=== PATIENT | female | born 1965 | race Caucasian/White ===

== ENCOUNTER → 2019-05-07 10:04 | Outpatient (CLI) | payer MEDICAID, SELFPAY ==
--- NOTE | 2019-05-07 10:06 | NM_ITS ---
CARDIOLITE SPECT MYOCARDIAL PERFUSION LEXISCAN, REST AND STRESS: [facility] REVIEW QGS EF AND WALL MOTION EVALUATION: QPS - PERFUSION EVALUATION HISTORY: palpitations DOSE: 10.20 mCi technetium 99m mibi intravenously at rest followed by 30.4 mCi technetium 99m mibi following the intravenous ministration of 0.4 mg of Lexiscan. Resting blood pressure is 133/66. Stress blood pressure 119/64. FINDINGS: Ejection fraction is calculated to be 67%. Stress images reveal decreased myocardial activity in the anterior wall while rest images reveal improved activity. IMPRESSION: Reversible anterior wall ischemia with normal ejection fraction normal wall motion
--- NOTE | 2019-05-07 10:06 | CA_ITS ---
CA echo doppler complete PROCEDURE: INDICATIONS FOR THE TEST: Chest pain COPD Heart Murmur Tobacco Smoking Palpitations Fatigue Syncope Edema HypertensionXDiabetes Mellitus Rheumatic Fever SOB [place] ObesityXHyperlipidemiaX Family History HDX Additional History CAD,PRE-OP EVAL PATIENT INFORMATION HEIGHT: 69 WEIGHT:222 GENDER: Female B/P:120/80 2-D/M-MODE INTERPRETATION: 2-D MEASUREMENTS OBSERVED VALUES IN CMS Right Ventricular Dimension (RVDd) 1.9 Interventricular Septum (Thickness)(IVsd) .8 Left Ventricular Internal Dimensions(LVIDd) 5.2 Left Ventricular Posterior Wall (Thickness)(LVPWd) 1.0 Aortic Root 3.0 Aortic Cusp Separation 1.8 Left Atrial Dimensions (LAD) 3.2 2D 1. Left atrium is qualitatively mildly enlarged, left ventricle is normal size, mild hypertrophy, visually estimated ejection fraction 55% with no regional wall motion abnormality. 2. The right atrium and ventricle are normal size and contractility. 3. The aortic valve is minimally thickened and fibrosed. 4. The mitral and tricuspid valvular grossly normal. 5. The pulmonic valve is poorly visualized. 6. No significant pericardial effusion noted. DOPPLER INTERROGATION: Doppler interrogation of the aortic, mitral and tricuspid valvular presence of mild mitral and tricuspid regurgitation, tricuspid regurgitation jet velocity is inadequate for calculation of the right ventricular systolic pressure, Doppler evidence of impaired relaxation seen. There is no tissue Doppler performed CONCLUSION: 1. Mildly enlarged left atrium, normal left ventricular size, mild concentric left ventricular hypertrophy, visually estimated ejection fraction 55% with no regional wall motion abnormality Doppler evidence of impaired relaxation seen. 2. Mild mitral and tricuspid regurgitation 3. No significant pericardial effusion noted.
--- NOTE | 2019-05-07 12:29 | HMH.ITSHM ---
Current Home Medications as stated by this patient Mary Aldana or nutrition representative. [] simvastatin tamoxifen lisinopril bisoprolol
== END ==
PROVIDERS: PCP Family Medicine; Visit Provider Internal Medicine
DX: R00.2 Palpitations (principal); R06.02 Shortness of breath; I10 Essential (primary) hypertension; Z01.818 Encounter for other preprocedural examination
CPT/HCPCS: 78452; 93017; 93306; A9502; J2785

== ENCOUNTER → 2021-06-02 09:09 | Outpatient (CLI) | payer MEDICAID, SELFPAY ==
[2021-06-02 09:51] LABS: Basophils # 0.1 K/mm3 (0-0.2); Basophils % 0.6 % (0.1-2.0); Eosinophils # 0.6 K/mm3 (0.0-0.4); Eosinophils % 4.5 % (0.1-12.0); Hematocrit 30.7 % (37.0-47.0); Hemoglobin 9.6 g/dL (12.2-16.2); Lymphocytes % 34.8 % (10-50); Mean Corpuscular HGB Conc 31.2 g/dL (31.8-35.4); Mean Corpuscular Hemoglobin 28.3 pg (27.0-31.2); Mean Corpuscular Volume 90.8 fl (81-99); Mean Platelet Volume 7.4 fl (7.4-10.4); Monocytes # 0.7 K/mm3 (0.1-1.0); Monocytes % 4.8 % (1.7-9.3); Neutrophils # 7.8 K/mm3 (1.8-7.8); Neutrophils % 55.2 % (37.0-80.0); Platelet Count 247 K/mm3 (142-424); Red Blood Count 3.38 M/mm3 (4.20-5.40); Red Cell Distribution Width 14.6 % (11.5-17.5); White Blood Count 14.2 K/mm3 (4.8-10.8)
[2021-06-02 10:24] LABS: Chloride 109 mmol/L (98-107); Sodium 140 mmol/L (136-145)
[2021-06-02 10:25] LABS: Potassium 4.3 mmoL/L (3.5-5.1)
[2021-06-02 10:27] LABS: Alanine Aminotransferase 22 U/L (12-78); Albumin/Globulin Ratio 1.2 (1.1-1.8); Alkaline Phosphatase 102 U/L (38-126); Anion Gap 13.3 mEq/L (5-15); Aspartate Amino Transferase 55 U/L (14-36); Blood Urea Nitrogen 9 mg/dl (7-17); Carbon Dioxide 22 mmol/L (22.0-30.0); Estimated Glomerular Filt Rate 87 ml/min (>60); GFR (African American) 105 ML/MIN (>60); Globulin 3.3 g/dL (1.3-3.2); Total Protein,Serum 7.3 g/dl (6.3-8.2)
[2021-06-02 10:28] LABS: Calcium 9.5 mg/dl (8.4-10.2); Glucose 90 mg/dl (74-100)
[2021-06-02 11:05] LABS: Ferritin 40.7 ng/ml (11.1-264)
[2021-06-03 09:10] LABS: Ceruloplasmin 30.1 mg/dL (19.0-39.0); Hep A Ab, IgM Negative (Negative); Hepatitis B Core Antibody IgM Negative (Negative); Hepatitis B Surface Antigen Negative (Negative); Hepatitis C Antibody <0.1 s/co ratio (0.0-0.9); Immunoglobulin A, Qn 393 mg/dL (87-352); Immunoglobulin G, Qn 1135 mg/dL (586-1602); Immunoglobulin M, Qn 224 mg/dL (26-217)
[2021-06-03 13:28] LABS: Angiotensin Converting Enzyme 66 U/L (14-82)
[2021-06-03 19:10] LABS: Actin (Smooth Muscle) Antibody 20 Units (0-19); Antinuclear Antibodies, IFA Positive (.); Deamidated Gliadin Abs, IgA 13 units (0-19); Deamidated Gliadin Abs, IgG 2 units (0-19); Endomysial IgA Antibody Negative (Negative); Mitochondrial (M2) Antibody 33.5 Units (0.0-20.0); Tissue Transglutaminase IgA Ab 3 U/mL (0-3); Tissue Transglutaminase IgG Ab 6 U/mL (0-5)
[2021-06-04 02:25] LABS: ALT (SGPT) P5P 22 IU/L (0-40); AST (SGOT) P5P 47 IU/L (0-40); Alpha 2-Macroglobulins, Qn 346 mg/dL (110-276); Apolipoprotein A-1 176 mg/dL (116-209); Bilirubin, Total 0.7 mg/dL (0.0-1.2); Cholesterol, Total 238 mg/dL (100-199); Fibrosis Score 0.63 (0.00-0.21); GGT 44 IU/L (0-60); Glucose 86 mg/dL (65-99); Haptoglobin 33 mg/dL (33-346); NASH Score 0.25 (0.25); Steatosis Score 0.31 (0.00-0.30); Triglycerides 126 mg/dL (0-149)
[2021-06-04 06:42] LABS: Reticulin IgA Antibody Negative titer (Neg:<1:2.5)
[2021-06-08 18:32] LABS: Alpha-1-Antitrypsin 222 mg/dL (101-187)
[2021-06-12 08:58] LABS: Alpha-1-Antitrypsin 221
== END ==
PROVIDERS: Visit Provider Nurse Practitioner Family
DX: R94.5 Abnormal results of liver function studies (principal); K74.60 Unspecified cirrhosis of liver; K70.0 Alcoholic fatty liver; F10.11 Alcohol abuse, in remission
CPT/HCPCS: 36415; 80053; 80074; 81256; 82103; 82104; 82164; 82390; 82728; 82784; 83516; 85025; 86038; 86255; 86256; 86376

== ENCOUNTER → 2021-06-05 10:55 | Outpatient (CLI) | payer MEDICAID, SELFPAY ==
[2021-06-05 11:57] LABS: INR 1.23 (0.9-1.1); Prothrombin Time 12.6 seconds (9.2-12.1)
== END ==
PROVIDERS: Visit Provider Nurse Practitioner Family
DX: R79.1 Abnormal coagulation profile (principal)
CPT/HCPCS: 85610

== ENCOUNTER → 2021-09-15 10:05 | Outpatient (CLI) | payer MEDICAID, SELFPAY | PROVIDERS: PCP Family Medicine; Visit Provider Nurse Practitioner Family | DX: R00.2 Palpitations (principal); R01.1 Cardiac murmur, unspecified; I10 Essential (primary) hypertension; E78.2 Mixed hyperlipidemia; I51.89 Other ill-defined heart diseases; Z72.0 Tobacco use | CPT/HCPCS: 93270 ==

== ENCOUNTER → 2021-12-01 08:18 | Outpatient (CLI) | payer MEDICAID, SELFPAY ==
[2021-12-01 08:57] LABS: Basophils # 0.2 K/mm3 (0-0.2); Basophils % 1.4 % (0.1-2.0); Eosinophils # 0.5 K/mm3 (0.0-0.4); Eosinophils % 4.4 % (0.1-12.0); Hemoglobin 13.3 g/dL (12.2-16.2); Lymphocytes # 4.4 K/mm3 (0.7-4.5); Mean Corpuscular HGB Conc 31.6 g/dL (31.8-35.4); Mean Corpuscular Hemoglobin 29.8 pg (27.0-31.2); Mean Corpuscular Volume 94.2 fl (81-99); Mean Platelet Volume 8.5 fl (7.4-10.4); Monocytes # 0.6 K/mm3 (0.1-1.0); Monocytes % 4.6 % (1.7-9.3); Neutrophils # 6.5 K/mm3 (1.8-7.8); Neutrophils % 53.6 % (37.0-80.0); Platelet Count 184 K/mm3 (142-424); Red Blood Count 4.46 M/mm3 (4.20-5.40); Red Cell Distribution Width 16.2 % (11.5-17.5); White Blood Count 12.1 K/mm3 (4.8-10.8)
[2021-12-01 09:04] LABS: INR 1.21 (0.9-1.1); Prothrombin Time 13.5 seconds (10.1-12.5)
[2021-12-01 09:05] LABS: Ammonia 40 umol/L (9-30)
[2021-12-01 10:14] LABS: Chloride 105 mmol/L (98-107)
[2021-12-01 10:15] LABS: Sodium 138 mmol/L (136-145)
[2021-12-01 10:17] LABS: Alanine Aminotransferase 21 U/L (12-78); Albumin Level 3.7 g/dl (3.5-5.0); Alkaline Phosphatase 77 U/L (38-126); Aspartate Amino Transferase 51 U/L (14-36); Bilirubin,Total 0.9 mg/dl (0.2-1.3); Blood Urea Nitrogen 9 mg/dl (7-17); Carbon Dioxide 26 mmol/L (22.0-30.0); Estimated Glomerular Filt Rate 87 ml/min (>60); GFR (African American) 105 ML/MIN (>60); Iron 61 ug/dL (37-170)
[2021-12-01 10:18] LABS: Calcium 9.7 mg/dl (8.4-10.2); Glucose 96 mg/dl (74-100); Total Protein,Serum 6.7 g/dl (6.3-8.2)
[2021-12-01 10:27] LABS: Total Iron Binding Capacity 325 ug/dL (265-497)
[2021-12-01 10:53] LABS: Ferritin 55.3 ng/ml (11.1-264)
[2021-12-01 15:03] LABS: Albumin/Globulin Ratio 1.2 (1.1-1.8)
[2021-12-02 08:37] LABS: AFP, Tumor Marker 16.2 ng/mL (0.0-8.3)
== END ==
PROVIDERS: Visit Provider Nurse Practitioner Family
DX: R94.5 Abnormal results of liver function studies (principal); K70.0 Alcoholic fatty liver
CPT/HCPCS: 36415; 80053; 82105; 82140; 82728; 83540; 83550; 85025; 85610

== ENCOUNTER → 2023-03-08 13:51 | Outpatient (CLI) | payer MEDICAID, SELFPAY | PROVIDERS: PCP Family Medicine; Visit Provider Nurse Practitioner | DX: R06.00 Dyspnea, unspecified (principal); I51.89 Other ill-defined heart diseases; Z09 Encounter for follow-up examination after completed treatment for conditions other than malignant neoplasm | CPT/HCPCS: 93306 ==

== ENCOUNTER 2025-02-12 11:53 | Outpatient (CLI) | payer MEDICAID, SELFPAY ==
[2025-02-12 12:51] LABS: Basophils # 0.1 K/mm3 (0-0.2); Basophils % 0.7 % (0.1-2.0); Eosinophils # 0.1 K/mm3 (0.0-0.4); Eosinophils % 0.7 % (0.1-12.0); Hematocrit 46.3 % (37.0-47.0); Hemoglobin 15.7 g/dL (12.2-16.2); Lymphocytes # 1.7 K/mm3 (0.7-4.5); Lymphocytes % 15.3 % (10-50); Mean Corpuscular HGB Conc 33.9 g/dL (31.8-35.4); Mean Corpuscular Hemoglobin 29.9 pg (27.0-31.2); Mean Corpuscular Volume 88.2 fl (81-99); Monocytes # 0.8 K/mm3 (0.1-1.0); Monocytes % 7.5 % (1.7-9.3); Neutrophils # 8.2 K/mm3 (1.8-7.8); Neutrophils % 75.2 % (37.0-80.0); Platelet Count 203 K/mm3 (142-424); Red Blood Count 5.25 M/mm3 (4.20-5.40); Red Cell Distribution Width 14.8 % (11.5-17.5)
[2025-02-12 13:19] LABS: Albumin Level 4.1 g/dl (3.5-5.0); Chloride 101 mmol/L (98-107); Potassium 4.1 mmoL/L (3.5-5.1); Sodium 135 mmol/L (136-145)
[2025-02-12 13:21] LABS: Blood Urea Nitrogen 13 mg/dl (7-17); Estimated Glomerular Filt Rate 86 ml/min (>60); GFR (African American) 104 ML/MIN (>60)
[2025-02-12 13:22] LABS: Alanine Aminotransferase 40 U/L (12-78); Alkaline Phosphatase 118 U/L (38-126); Anion Gap 8.1 mEq/L (5-15); Aspartate Amino Transferase 53 U/L (14-36); Bilirubin,Direct 0.1 mg/dl (0.0-0.4); Bilirubin,Total 2.1 mg/dl (0.2-1.3); Calcium 10.1 mg/dl (8.4-10.2); Carbon Dioxide 30 mmol/L (22.0-30.0); Cholesterol 259 mg/dl (140-200); Glucose 90 mg/dl (74-100); Magnesium 1.9 mg/dl (1.6-2.3); Total Protein,Serum 6.8 g/dl (6.3-8.2); Triglycerides 58 mg/dl (30-150); VLDL Cholesterol 12 mg/dL (0-40)
[2025-02-12 13:23] LABS: Chol/HDL Ratio 2.6 (1-3.5); HDL Cholesterol 99 mg/dl (40-60)
[2025-02-12 13:34] LABS: Direct LDL Cholesterol 134.19 mg/dL (100-129)
[2025-02-12 13:53] LABS: Thyroid Stimulating Hormone 1.93 uIU/mL (0.465-4.68)
[2025-02-12 17:35] LABS: Free T4 (Free Thyroxine) 1.76 ng/dl (0.78-2.19)
== END 2025-02-12 23:59 | disposition home or self-care (01) ==
PROVIDERS: PCP Nurse Practitioner Family; Visit Provider Nurse Practitioner Family
DX: I34.0 Nonrheumatic mitral (valve) insufficiency (principal); R60.9 Edema, unspecified; M35.00 Sjogren syndrome, unspecified; E78.2 Mixed hyperlipidemia; I10 Essential (primary) hypertension; Z72.0 Tobacco use
CPT/HCPCS: 36415; 80048; 80061; 80076; 83735; 84439; 84443; 85025

== ENCOUNTER 2025-03-18 10:53 | Outpatient (CLI) | payer MEDICAID, SELFPAY ==
--- OUTSIDE RECORDS SUMMARY | 2025-03-18 10:55 | XMS_ITS | Continuity of Care Document ---
Author Organization MONISHA - SORIN Thom & JUNE Rivas [facility] Address [address] [place] [address] Care Team Providers Care Orange Peel Operator Name Role Phone NINA MCCRACKEN Primary Care Provider Assessment No assessment recorded. Plan of Treatment Reminders Order Date Submit Date Provider Last Modified By Organization Details Last Modified Time Details Appointments None recorded. Lab None recorded. Referral None recorded. Procedures None recorded. Surgeries None recorded. Imaging XR, hand 2024 025 [email or web address] [facility], [address] [place] [address], [address], 5 14:52:17 Medication Orders Kenalog 10 mg/mL suspension for injection [address] [place] [address] Pharmacy #1, [address] [place], [address], 5 14:52:17 bupivacaine HCl 0.5 % (5 mg/mL) injection solution [address] [facility], [address] [place], [address], 5 14:52:17 Patient TargetsNo targets recorded. Patient InstructionsNo instructions recorded. Reason for Referral None Reported. Results Created Date Observation Date Name Description Value Unit Range Abnormal Flag Note LastModifiedBy Organization Detail LastModifiedTime 01/31/2001/29/2025 rell birdie n unila t lt 2D [facility] al [address] [place] [address] Phone: Fax: Name: MARY WOLFE Exam Date: 01/30/20 : [birth year] Age 60 years Gender : F Access ion: [id number] Physic macho: ELIDA MESSINA Facilhernandez ty: [facility] HSV: Outpat ient Exam: RELL SCREEN UNILAT LT 2D & 3D EXAMIN ATION: RELL SCREEN UNILAT LT 2D & 3D HISTOR Y: Screen ing mammog masoud. Histor y of right breast cancer status post mastec fredrick 2013. Histor y of benign left breast excisi on. No curren t compla ints. COMPAR JOSE ANTONIO: 023, 022, 07/01/20 20 and 019 TECHNI QUE: Unilat eral left breast screen ing mammog masoud. CC and MLO views of the left breast were obtain ed with combin ation 2-D mammog masoud (DM)/d igital breast tomosy nthesi s (DBT) and interp reted with CAD. FINDIN GS: Breast Densit y: C - The breast tissue is hetero geneou sly dense, which may obscur e small masses . Patien t is status post right mastec fredrick and left excisi on. The appear ance is stable since the previo us mammog masoud. There are no suspic ious masses , calcif icatio ns or region s of distor tion on today' s imagin g. IMPRES ALYSON: No mammog raphic eviden ce of malign amanda status post right mastec fredrick. BI-RAD S CATEGO RY: CATEGO RY 2, BENIGN FINDIN GS RECOMM ENDATI ON: ANNUAL SCREEN ING IN 12 MONTHS Electr onical ly signed by: Abdon Robertson MD 2024 02:47 PM EST RP Workst ation: SEALWR [id number] FC BIRADS [facility] BREAST DENSIT Y [facility] FOLLOW -UP CODE Dictat ed By: ABDON POSADAS Transc ribed By: Transc ribed On: 01/31/20 2:44 PM Electr onical ly signed by: ABDON POSADAS 01/31/20 Thank you for referr MARY Reynoso to [facility] al. Legall y authsushila caal d by GERALD KAY 2024-01-30 14:44: 52 CC'ed Logic: Orderi ng Provid er: LISA MARRERO CC Provid er: LISA MARRERO [email or web address] [facility] ([facility]) [address], [place], [address], 01/30/2025 15:32:35 02/05/20 25 XR, hand No observ ation record ed. DOMINIC [facility] [address], [address], 02/06/2025 14:06:55 02/07/20 25 XR, hand No observ ation record ed. [email or web address] [address], [address], 02/06/2025 13:16:42 Result Notes None recorded. Problems Name Problem SNOMED Code Status Onset Date Resolution Date Notes Provider Name and Address Organization Details Recorded Time Fever [id number] Active 2023 Neva Nina [facility], [place] - [place] - [place] & [place] 4 08:46:43 Acute bacterial pharyngitis 398828254 Active 2023 Nina Rolon PA-C [address] [facility], [place], [address], [place] [facility] [facility] & Evelyn 4 09:15:13 Dyspnea on exertion 24669107 Active 2024 Nina Rolon PA-C [address], [place], [address], [place] & [place] 5 09:44:44 Right lower zone pneumonia 366920635 Active 2024 Nina Rolon PA-C [address] [facility],[address], [place], [address], [place] 5 10:41:38 Viral syndrome 361088645 Active 2024 Elida Messina NP [facility] [address] [facility], [place], [address], [place] & [place] 5 15:30:42 Pain in right hand 6099666839543 09 Active 2024 Elida Messina NP [facility] [address] [facility], [place], [address], [place] & [place] 5 11:20:47 Benign hypertensio n 23614123 Active 2021 Elida Messina NP [facility] [address] [facility], [place], [address], [place] & [place] 2 10:24:59 Gastroesoph ageal reflux disease without esophagitis 930414808 Active 2021 Elida Messina NP [facility] [address] [facility], [place], [address], [place] & [place] 2 10:25:09 Migraine 48421724 Active 2021 Elida Messina NP [facility] [address] [facility], [place], [address], [place] & [place] 2 10:25:18 History of malignant neoplasm of breast 275256720 Active 2021 Elida Messina NP [facility] [address] [facility], [place], [address], [place] & [place] 2 10:25:38 Mixed hyperlipide vidal 203976167 Active 2021 Elida Messina NP [address] [place] [address],[address], [place], [address], [place] & [place] 2 10:25:54 Allergic rhinitis 98007193 Active 2021 Elida Messina, SENIOR WEB ARCHITECT [address] [place] [address],[address], [place], [address], [place] & [place] 2 10:26:07 Cirrhosis of liver 71837912 Active 2021 Elida Messina, SENIOR WEB ARCHITECT [address] [place] [address],[address], [place], [address], [place] & [place] 2 10:26:18 Generalized anxiety disorder 07492793 Active 2021 Elida Messina, COLE [address] [place] [address],[address], [place], [address], [place] 2 10:26:55 Osteoarthri tis 993032029 Active 2021 Elida Messina, SENIOR WEB ARCHITECT [address] [place] [address],[address], [place], [address], [place] 2 10:27:06 Skin lesion 24209717 Active 2021 Elida Messina, COLE [address] [place] [address],[address], [place], [address], [place] 2 10:40:43 Fatigue 76334110 Active 2021 Elida Messina, COLE [address] [place] [address],[address], [place], [address], [place] 2 10:41:27 Blood glucose outside reference range 231457568 Active 2021 Elida Messina, COLE [address] [place] [address],[address], [place], [address], [place] 2 10:42:01 Muscle pain 07809421 Active 2021 Dank null, [place] 2 11:47:23 Essential hypertensio n 84924161 Active 2021 Dank null[place] 2 11:49:18 Squamous cell carcinoma of skin 987823014 Active 2021 Elida Messina, COLE [facility],[address], [address], [place] 2 14:12:38 Congestion of nasal sinus 03788456 Active 2021 Dank null, [place] 2 16:34:41 SARS-CoV-2 antibody detected 183508031 Active 2021 Elida Messina NP [facility],[address], [address], [place] 2 10:56:19 Vitamin D deficiency 40157981 Active 2021 Elida Messina NP [address] [place] [address],[address], [address], [place] 4 10:28:03 Spasm 53137653 Active 2022 Nina Rolon PA-C [address] [place] [address],[address], [address], [place] 3 10:53:10 Sj??gren's syndrome 38573898 Active 2022 Nina Rolon PA-C [facility],[address], [address], [place] 3 10:54:15 Hypomagnese vidal 303592075 Active 2022 Nina Rolon PA-C [facility] [employer], [place], [address], [place] 3 08:00:02 Dental abscess 369450559 Active 2022 Elida Messina NP [facility] [address] [facility], [place], [address], [place] 3 10:53:45 Candidiasis of vagina 41768190 Active 2022 Elida Messina NP [facility] [address] [facility], [place], [address], [place] 3 14:21:45 Acute pharyngitis 494922097 Active 2022 Nina Rolon PA-C [facility] [address] [facility], [place], [address], [place] 3 13:37:35 Acute otitis media 3116964 Active 2022 Nina Rolon PA-C [facility] [address] [facility], [place], [address], [place] 3 13:54:26 Cough 59177798 Active 2022 Elida Messina NP [facility] [address] [facility], [place], [address], [place] 3 11:17:20 Acute exacerbatio n of chronic obstructive pulmonary disease 064515129 Active 2022 Elida Messina NP [facility] [address] [facility], [place], [address], [place] 3 11:44:39 Iron deficiency anemia 60402497 Active 2022 Elida Messina NP [facility] [address] [facility], [place], [address], [place] 3 10:06:07 Pain of right shoulder joint 6589732365727 9100 Active 2022 Elida Messina NP [address] [facility],[address], [place], [address], [place] 3 09:38:50 Acute upper respiratory infection 90893948 Active 2022 RM CROSS [address] [facility],[address], [place], [address], [place] & [place] 3 16:28:50 Middle ear effusion 1264448620 Active 2023 Elida Messina NP [facility] [address] [facility], [place], [address], [place] 4 09:13:11 Abrasion of skin of left ear 1084239922455 9107 Active 2023 Elida Messina NP [address] [facility],[address], [place], [address], [place] 4 09:42:28 Lesion of liver 312662098 Active 2023 Stephanie Felix null[place] 4 11:40:12 Hepatic failure 46855078 Active 2023 Stephanie Felxi null[place] 4 11:40:54 Pain of left hand 5064700916113 03 Active 2023 Zoe Rizzo null[place] 5 13:17:32 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 Procedures Surgical History Date Name Laterality Status Provider Name and Address Organization Details Recorded Time 11/03/20 23 completed February Weems MONISHA - [place] - [place] & [place] 02/02/2024 13:47:17 10/12/20 23 Date of Last Colonoscopy completed February Weems MONISHA - [place] - [place] & [place] 02/02/2024 13:47:17 09/30/20 23 Date of Last Pap Smear completed February Weems MONISHA - [place] - [place] & [place] 02/02/2024 13:47:17 10/27/20 22 Excision and closure completed Elida Messina NP [address], [place], [address], [place]ISHA - [place] - [place] & [place] 10/27/2022 15:19:23 10/15/20 22 Punch Biopsy completed Elida Messina NP [address], [place], [address], [place] & [place] 10/15/2022 10:44:06 11/28/19 22 Other completed February Dank BEARDEN - [place] - [place] & [place] 12/31/2022 10:29:21 11/28/19 22 Other completed February Weems MONISHA - [place] - [place] & [place] 10/27/2022 14:03:34 11/28/19 19 Knee Replacement completed Zoe Villagran [facility] - [place] & [place] 10/15/2022 10:14:27 07/26/20 17 procedure on shoulder completed Zoe BEARDEN - [place] - [place] & [place] 10/15/2022 10:14:14 11/28/19 17 Cataract Surgery completed Zoe BEARDEN - [place] - [place] & [place] 10/15/2022 10:13:02 11/28/19 17 Joint Replacement completed Zoe BEARDEN - [place] - [place] & [place] 10/15/2022 10:20:31 11/28/19 16 Breast Biopsy completed Zoe BEARDEN - [place] - [place] & [place] 10/15/2022 10:12:50 03/04/20 15 Most Recent Bone Density completed Zoe Villagran LPNT [facility] & [place] 10/15/2022 10:20:10 11/28/19 15 Colonoscopy completed Zoe Villagran LPNT [facility] & [place] 10/15/2022 10:20:31 11/28/19 14 Mastectomy completed Stephanie BEARDEN - LPNT [facility] & [place] 02/17/2024 14:18:25 11/28/19 14 Mastectomy completed Zoe Villagran LPNT [facility] & [place] 10/15/2022 10:11:28 11/28/19 14 Cancer Surgery completed Zoe Villagran LPNT [facility] & [place] 10/15/2022 10:20:31 11/28/18 90 Dilation and Curettage completed Zoe Villagran LPNT [facility] & [place] 10/15/2022 10:12:12 11/28/18 83 Appendectomy completed Zoe ROWELL [facility] & [place] 10/15/2022 10:11:40 Tubal Ligation completed Zoe Villagran LPNT [facility] & [place] 10/15/2022 10:11:50 Imaging Results Imaging Date Name Status LastModified by Organiz ation Details LastModified Time 02/04/2025 XR, hand completed DOMINIC [facility] [address] [place] [address], [address], 02/06/2025 14:06:55 Procedure Notes None recorded. Medical Equipment None Reported. Allergies Allergen ID Allergen Name Allergen Category Reaction Reaction Severity Criticality Documentation Date Start Date Code Code System Note Provider Name and Address Organization Details Recorded Time [id number] mold extract medicatio n Not available Not available Not available 11/03/2023 79278 8 RxNorm Other react ions and sever ities : 'Resp irato ry distr ess - moder ate', and 'Resp irato ry distr ess - moder ate'. Zoe Rizzo tejinder MONISHA - LPNT [facility] & [place] 15:39:57 68362 Product containin g penicilli n (product) medicatio n Not available Not available Not available 10/15/2022 31811 8001 SNOMED MONISHA Leavitt [facility] & [place] 2 10:20:42 61800 Substance with sulfonami de structure and antibacte rial mechanism of action (substanc e) medicatio n swelling moderate Not available 10/15/2022 62130 8003 SNOMED MONISHA Leavitt [facility] & [place] 2 10:10:24 40280 penicilli n G Not available Not available Not available Not available 10/15/2022 7980 RxNorm Other react ions and sever ities : 'Rash - moder ate'. MONISHA Herrera [facility] & [place] 3 15:39:57 11132 house dust allergeni c extract environme nt,medica tion respirato ry distress moderate Not available 10/27/2022 92140 9 RxNorm MONISHA Barton [facility] & [place] 2 14:03:28 68288 grass pollen environme nt,medica tion respirato ry distress moderate Not available 10/27/2022 68228 UNK MONISHA Barton [facility] & [place] 2 14:03:28 56049 mold extract environme nt respirato ry distress moderate Not available 10/27/2022 32371 8 RxNorm MONISHA Herrera [facility] & [place] 3 15:39:57 Medications Name Sig Start Date Stop Date Status Note LastModified by Organization Details LastModified Time cyclobenzap rine 10 mg tablet TAKE 1 TABLET BY MOUTH EVERY 12 HOURS active Not Available Not Available No t Available furosemide 40 mg tablet TAKE 2 TABLETS (80 MG) BY MOUTH 1 (ONE) TIME EACH DAY. active Not Available Not Available No t Available latanoprost 0.005 % eye drops INSTILL 1 DROP IN BOTH EYES AT BEDTIME active Not Available Not Available No t Available biotin 10 mg tablet active Not Available Not Available No t Available anastrozole 1 mg tablet TAKE 1 TABLET (1 MG) BY MOUTH DAILY active Not Available Not Available No t Available fluticasone 250 mcg-salmete rol 50 mcg/dose blistr powdr for inhalation 08/15 completed Not Available Not Available Not Available nystatin 100,000 unit/mL oral suspension SWISH ANS SPIT/SWAL LOW 4 ML BY MOUTH 4 TIMES DAILY 02/16 completed Not Available Not Available Not Available prednisone 10 mg tablet TAKE 1 TABLET BY MOUTH 2 TIMES DAILY FOR 7 DAYS, THEN 1 TABLET DAILY FOR 7 DAYS 12/28 completed Not Available Not Available Not Available doxycycline hyclate 100 mg capsule Take 1 capsule twice a day by oral route. 02/01 completed Not Available Not Available Not Available clindamycin HCl 300 mg capsule TAKE 1 CAPSULE BY MOUTH EVERY 6 HOURS UNTIL GONE 08/16 completed Not Available Not Available Not Available albuterol sulfate 2.5 mg/3 mL (0.083 %) solution for nebulizatio n INHALE 3 ML EVERY 4-6 HOURS BY NEBULIZAT ION ROUTE FOR 30 DAYS. active Not Available Not Available No t Available azithromyci n 250 mg tablet TAKE 2 TABLETS BY MOUTH THE FIRST DAYS DOSE, THEN TAKE 1 TABLET DAILY FOR 4 MORE DAYS. 09/27 completed Not Available Not Available Not Available alprazolam 1 mg tablet TAKE 1 HR PRIOR TO SURGERY 06/21 completed Not Available Not Available Not Available fluconazole 150 mg tablet 11/30 completed Not Available Not Available Not Available benzonatate 200 mg capsule Take 1 capsule 3 times a day by oral route for 5 days. 01/21 completed Not Available Not Available Not Available bupivacaine HCl 0.5 % (5 mg/mL) injection solution Take 5 mg by injection route. 2024 active Not Available Not Available Not Avai lable prednisone 20 mg tablet 06/21 completed Not Available Not Available Not Available triamcinolo ne acetonide 0.1 % topical cream 01/21 completed Not Available Not Available Not Available spironolact one 25 mg tablet TAKE 3 TABLETS BY MOUTH ONCE DAILY. active Not Available Not Available No t Available ceftriaxone 1 gram solution for injection Take 1 g by injection route. 01/21 completed Not Available Not Available Not Available famotidine 20 mg tablet TAKE 1 TABLET BY MOUTH EVERY NIGHT AT BEDTIME NEEDED active Not Available Not Available No t Available magnesium oxide 400 mg (241.3 mg magnesium) tablet TAKE 1 TABLET BY MOUTH DAILY. 01/21 completed Not Available Not Available Not Available Vitamin C 1,000 mg tablet 08/15 completed Not Available Not Available Not Available Diflucan 100 mg tablet Take 1 tablet every other day by oral route. 02/01 completed Not Available Not Available Not Available Kenalog 10 mg/mL suspension for injection Take 10 mg by injection route. 2024 active Not Available Not Available Not Avai lable meclizine 25 mg tablet TAKE 1 TABLET BY MOUTH EVERY 8 HOURS NEEDED. 01/21 completed Not Available Not Available Not Available cephalexin 500 mg capsule TAKE 1 CAPSULE BY MOUTH TWICE DAILY UNTIL GONE. 01/21 completed Not Available Not Available Not Available Advair Diskus 500 mcg-50 mcg/dose powder for inhalation INHALE 1 PUFF DIRECTED TWICE A DAY 05/24 completed Not Available Not Available Not Available omeprazole 20 mg capsule,del ayed release Take 1 capsule every day by oral route. active Not Available Not Available No t Available Banophen 25 mg capsule TAKE 1 CAPSULE BY MOUTH THREE TIMES DAILY NEEDED 12/28 completed Not Available Not Available Not Available cephalexin 500 mg tablet Take 1 tablet twice a day by oral route for 10 days. 01/21 completed Not Available Not Available Not Available montelukast 10 mg tablet TAKE 1 TABLET BY MOUTH ONCE DAILY. active Not Available Not Available No t Available furosemide 20 mg tablet TAKE 2 TABLETS BY MOUTH ONCE DAILY 12/31 completed Not Available Not Available Not Available ergocalcife rol (vitamin D2) 1,250 mcg (50,000 unit) capsule TAKE 1 CAPSULE BY MOUTH ONCE WEEKLY active Not Available Not Available No t Available dexamethaso ne sodium phosphate 4 mg/mL injection solution Inject 2 mL by intramusc ular route for 1 day. 01/21 completed Not Available Not Available Not Available azelastine 137 mcg (0.1 %) nasal spray INSTILL 1-2 SPRAYS IN EACH NOSTRIL TWICE DAILY NEEDED. 01/21 completed Not Available Not Available Not Available methylpredn isolone 4 mg tablets in a dose pack TAKE 6 TABS ON DAY 1, 5 TABS ON DAY 2, 4 TABS ON DAY 3, 3 TABS ON DAY 4, 2 TABS ON DAY 5, 1 TAB ON DAY 6, THEN STOP. TAKE WITH FOOD 09/30 completed Not Available Not Available Not Available cefdinir 300 mg capsule Take 1 capsule every 12 hours by oral route for 10 days. 01/21 completed Not Available Not Available Not Available tamoxifen 20 mg tablet TAKE 1 TABLET BY MOUTH ONCE DAILY. 08/14 completed Not Available Not Available Not Available Ventolin HFA 90 mcg/actuati on aerosol inhaler INHALE 2 PUFFS EVERY 4-6 HOURS NEEDED FOR PERSISTEN T COUGH, WHEEZE, CHEST TIGHTNESS , OR SHORTNESS OF BREATH active Not Available Not Available No t Available magnesium 250 mg (as magnesium oxide) tablet 02/16 completed Not Available Not Available Not Available oxycodone 5 mg tablet TAKE 1 TABLET BY MOUTH EVERY 4 HOURS NEEDED FOR PAIN 01/21 completed Not Available Not Available Not Available cyclobenzap rine 5 mg tablet TAKE 1 TABLET BY MOUTH TWICE DAILY. 04/26 completed Not Available Not Available Not Available Spiriva with HandiHaler 18 mcg and inhalation capsules INHALE THE CONTENTS OF 1 CAPSULE ONCE DAILY. 05/24 completed Not Available Not Available Not Available nitrofurant oin monohydrate /macrocryst als 100 mg capsule TAKE 1 CAPSULE BY MOUTH 2 TIMES DAILY 12/31 completed Not Available Not Available Not Available lactulose 10 gram/15 mL oral solution TAKE 15 ML BY MOUTH 2 TIMES A DAY. active Not Available Not Available No t Available levocetiriz ine 5 mg tablet TAKE 1 TABLET BY MOUTH ONCE DAILY active Not Available Not Available No t Available diclofenac 1 % topical gel APPLY 2 GRAMS TO THE AFFECTED AREA(S) 4 TIMES PER DAY active Not Available Not Available No t Available cholecalcif warner (vitamin D3) 50 mcg (2,000 unit) capsule TAKE 1 CAPSULE BY MOUTH ONCE DAILY active Not Available Not Available No t Available vitamin E (dl, acetate) 180 mg (400 unit) capsule 08/15 completed Not Available Not Available Not Available lactulose 10 gram/15 mL (15 mL) oral solution 02/16 completed Not Available Not Available Not Available EpiPen 2-Constantine 0.3 mg/0.3 mL injection, auto-inject or INJECT 1 SYRINGE IN OUTER THIGH NEEDED FOR ANAPHYLAC TIC REACTION. KEEP ON YOU AT ALL TIMES. PROTECT FROM EXTREME TEMPERATU RES. REPEAT IF NEEDED active Not Available Not Available No t Available Women's 50 Plus Daily Formula active Not Available Not Available Not Available Nucala 100 mg subcutaneou s solution active Not Available Not Available N ot Available Trelegy Ellipta 100 mcg-62.5 mcg-25 mcg powder for inhalation 05/24 completed Not Available Not Available Not Available Trelegy Ellipta 200 mcg-62.5 mcg-25 mcg powder for inhalation INHALE 1 PUFF ONCE DAILY DIRECTED .WASH OUT MOUTH AFTER USE active Not Available Not Available No t Available Vitals None Recorded Social History Question Answer Notes LastModified by Organizat ion Details LastModified Time Tobacco Smoking Status Current Every Day Smoker Zoe Hannaton [facility] & [place] 10/15/2022 10:11:07 Do You Have An Advance Directive? No [email or web address] Information not available 10/15/2022 What Is Your Level Of Alcohol Consumption? None [email or web address] Information not available 10/15/2022 Are You Blind Or Do You Have Difficulty Seeing? No [email or web address] Information not available 10/15/2022 What Is Your Level Of Caffeine Consumption? Occasional Information not available 11/30/2023 What Was The Date Of Your Most Recent Tobacco Screening? 10/15/2022 [email or web address] Information not available 10/15/2022 Are You Passively Exposed To Smoke? Yes [email or web address] Information no t available 10/15/2022 How Much Tobacco Do You Smoke? 0.5 PPD [email or web address] Information not available 10/15/2022 Do You Feel Stressed (tense, Restless, Nervous, Or Anxious, Or Unable To Sleep At Night)? [id number] [email or web address] Information not available 10/15/2022 Do You Use Any Illicit Or Recreational Drugs? Yes [email or web address] Information not available 10/15/2022 Has Tobacco Cessation Counseling Been Provided? No Information not available 11/30/2023 How Many Years Have You Smoked Tobacco? 36 [email or web address] Information not available 10/15/2022 Sex: Female Functional Status Question Answer Note LastModified by Organizat ion Details LastModified Time What is your exercise level? Occasional Information not available 10/15/2022 Mental Status None recorded. Family History Relationship Description Onset Age of this Age Resolved Age Notes LastModified by Organization Details LastModified Time Mother Chronic obstructive pulmonary disease pt. added direct ly (10/15) [email or web address] Not available 10/15/2022 09:29:23 Mother Cerebrovascu lar accident pt. added direct ly (10/15) [email or web address] Not available 10/15/2022 09:29:52 Father Hypertensive disorder pt. added direct ly (10/15) [email or web address] Not available 10/15/2022 09:30:00 Father Myocardial infarction pt. added direct ly (10/15) [email or web address] Not available 10/15/2022 09:30:56 Father Gastroesopha geal reflux disease pt. added direct ly (10/15) [email or web address] Not available 10/15/2022 09:33:06 Sister Hypertensive disorder pt. added direct ly (10/15) [email or web address] Not available 10/15/2022 09:31:22 Sister Autoimmune disease pt. added direct ly (02/16) [email or web address] Not available 02/16/2023 08:53:09 Brother Autoimmune disease pt. added direct ly (10/15) [email or web address] Not available 10/15/2022 09:31:51 Medical History Condition Response Other Y COPD Y Anxiety Disorder Y Autoimmune disease Y Vision or Eye Problems Y Arthritis Y Cancer Y High Cholesterol Y Liver Disease Y Headaches Y Allergies/Hayfever Y GI Problems Y Heart Attack (OR) Y Back Problems Y Reflux/GERD Y Hypertension Y Chicken Pox Y Gynecological History Statement/Question Response Abnormal Pap Y 11/03/2023 Date of Last Colonoscopy 10/12/2023 Most Recent Bone Density 03/04/2015 Date of LMP 02/08/2014 Sexually Active? Y Menses Monthly N Date of Last Pap Smear 09/30/2023 Current Control Method Tubal Ligat ion Age at Menarche 49 Obstetrics History GPAL:G 0 P 0 0 0 0 Immunizations Vaccine Type Date Status Note Provider Nam e and Address Organization Details Recorded Time Influenza, split virus, quadrivalent, PF 2 completed Zoe Rizzo null, [place] [facility] [place] & [place] 02/03/2024 13:11:40 Influenza, MDCK, quadrivalent, PF 7 completed February null, [place] [facility] [place] & [place] 10/27/2022 13:49:58 Tdap 2 completed Zoe Leet null, [place] [facility] [place] 02/03/2024 13:11:40 Influenza, split virus, trivalent, PF 4 completed February null, [place] [facility] & [place] 10/27/2022 13:49:58 COVID-19, mRNA, LNP-S, PF, 100 mcg/0.5mL dose or 50 mcg/0.25mL dose 2 completed Zoe Leet null, [place] [facility] [place] 02/03/2024 13:11:40 Influenza, split virus, quadrivalent, preservative 5 completed February null, [place] [facility] & [place] 10/27/2022 13:49:58 COVID-19 vaccine, vector-nr, [id number], PF, 0.5 mL 1 completed Zoe Leet null, [place] [facility] [place] 02/03/2024 13:11:40 Influenza, split virus, quadrivalent, PF 0 completed Zoe Leet null, [place] [facility] [place] 02/03/2024 13:11:40 zoster recombinant 1 completed Zoe Leet null, [place] [facility] & [place] 02/03/2024 13:11:40 COVID-19, mRNA, LNP-S, bivalent, PF, 50 mcg/0.5 mL or 25mcg/0.25 mL dose 2 completed Zoe Leet null, [place] [facility] & [place] 02/03/2024 13:11:40 zoster, unspecified formulation 0 completed [facility]/03/[facility]23 15:33:59 Influenza, split virus, quadrivalent, PF 3 completed Zoe Leet null, [place] [facility] [place] 02/03/2024 13:11:40 COVID-19, mRNA, LNP-S, PF, 50 mcg/0.5 mL 4 completed Zoe marr, [facility] & [place] 02/03/2024 13:11:40 Influenza, MDCK, trivalent, PF 4 completed Elida Messina NP [address], [place], [address], [facility] & [place] 08/31/2024 09:52:33 Past Encounters Encounter ID Performer Location Encounter Start Date Encounter Closed Date Diagnosis/Indication Diagnosis SNOMED-CT Code Diagnosis ICD10 Code Diagnosis Note [id number] Elida Messina NP [address] [place] [address] 01/21/2025 13:49:00 01/21/2025 15:27:23 Vitamin D deficiency 23338656 E55.9 Allergic rhinitis 063916 04 J30.9 Cough 94662602 R05.9 Viral syndrome 547025258 B34.9 Benign hypertension 1072 5009 I10 Cirrhosis of liver 58699 007 K74.60 [id number] Elida Messina NP [address] [address] [place] [address] 02/04/2025 11:14:17 02/04/2025 11:25:04 Pain of left hand 0738156966 75826 M79.642 Osteoarthritis 719961788 M19.90 [id number] ADELAIDA BAEKR DO [facility] [place] [address] 02/06/2025 13:40:18 02/06/2025 14:28:46 Pain of left hand 4864302185 10962 M79.642 Arthritis of first carpometacarpal joint of left hand 9089362521 878306 M18.12 [id number] Elida Messina NP [address] [address] [place] [address] 02/06/2025 12:57:50 02/06/2025 13:23:42 Pain of left hand 9829020973 71109 M79.642 Health Concerns Section Related Observation LastModified by Organization Detai ls LastModified Time None Recorded Concern Status LastModified by Organization Details LastModified Time None Recorded Payers Encounter Date Sequence Insurance Name Policy Number Policy Nelson Covered Member ID Nelson Member ID Guarantor Name 02/06/2025 1 [facility] (MEDICAID HMO) [id number] Mary Aldana [id number] Marymendy Aldana Notes Date Note Type Note Provider Name and Address Organization Details Recorded Time 02/06/2025 text/html 60 year old fema le here today for left hand pain ongoing for 4 months-- no known injury. She has pain with gripping/twisting. She denies numbness and tingling of hand. She was using arthritis cream, minimal relief. [facility] left hand [facility] at [facility]. [facility] [address], [place], [address], [place] [facility] [place] & [place] 02/08/2025 08:02:55 OBGyn Episode No OBEpisode recorded.
--- OUTSIDE RECORDS SUMMARY | 2025-03-18 10:56 | XMS_ITS | Continuity of Care Document ---
Author Organization [place] - [place] [facility] Address [address] [place] [address] Care Team Providers Care Water Pollution Scientist Name Role Phone NINA MCCRACKEN Primary Care Provider Assessment No assessment recorded. Plan of Treatment Reminders Order Date Submit Date Provider Last Modified By Organization Details Last Modified Time Details Appointments None recorded. Lab None recorded. Referral orthopedic surgeon referral - Dr. Maciej cole 2024 025 [email or web address] Maciej Cole DO, [address] [place], [address], 07:32:58 Procedures None recorded. Surgeries None recorded. Imaging None recorded. Medication Orders None recorded. Patient TargetsNo targets recorded. Patient Instructions Encounter Date Encounter Id Patient Instructions Last Modified By Organization Details Last Modified Time 02/04/2025 [id number] plan Continue to do the diclofenac gel to the affected area. Warm moist heat recommended. Referral to Orthopedic, Dr. Maciej Cole was referred to at her request. [email or web address] Not available 02/04/2025 14:54:14 Reason for Referral Orthopedic Surgeon Referral for Pain of left hand Dr. Maciej cole Referring Physician: Elida Messina, Family Medicine, Encounter Date: 02/04/2025 Results Created Date Observation Date Name Description Value Unit Range Abnormal Flag Note LastModifiedBy Organization Detail LastModifiedTime 01/31/2001/29/2025 rell scree n unila [facility] lt [facility] [address] [place] [address] Phone: Fax: Name: MARY WOLFE Exam Date: 01/30/20 : [birth year] Age 60 years Gender : F Access ion: [id number] Physic macho: ELIDA MESSINA Mike ty: [facility] jorge [facility] [place] HSV: Outpat ient Exam: RELL SCREEN UNILAT [...] 02:47 PM EST RP Workst ation: SEALWR [id number] FC BIRADS [facility]CH BREAST DENSIT Y [facility] FOLLOW -UP CODE Dictat ed By: ABDON POSADAS Transc ribed By: Transc ribed On: 01/31/20 2:44 PM Electr onical ly signed by: ABDON POSADAS 01/31/20 Thank you [facility] Legall y authen ticate d by GERALD KAY 01-30 14:44: 52 CC'ed Logic: Rosalio ng Fela er: LISA MARRERO CC Provid er: LISA MARRERO [email or web address] [facility] ([facility]) [address] [place] [address], [place], [address], 01/30/2025 15:32:35 02/05/20 25 XR, hand No observ ation record ed. DOMINIC [address], [address], 02/06/2025 14:06:55 02/07/20 25 XR, hand No observ ation record ed. [email or web address] [address], [address], 02/06/2025 13:16:42 Result Notes None recorded. Problems Name Problem SNOMED Code Status Onset Date Resolution Date Notes Provider Name and Address Organization Details Recorded Time Fever 067029671 Active 2023 [facility] & [place] 4 08:46:43 Acute bacterial pharyngitis 183708986 Active 2023 Nina Rolon PA-C [facility] [employer] [facility],[address], [place], [address], [facility] & [place] 4 09:15:13 Dyspnea on exertion 93412010 Active 2024 Nina Rolon PA-C [facility] [employer] [facility],[address], [place], [address], [facility] - [facility] - [place] & [place] 5 09:44:44 Right lower zone pneumonia 457665035 Active 2024 Nina Rolon PA-C [address] [employer] [facility],[address], [place], [address], [place] - [facility] - [place] & [place] 5 10:41:38 Viral syndrome 545556690 Active 2024 Elida Messina, COLE [facility] [employer] [address], [place], [address], [place] - [facility] - [facility] & [place] 5 15:30:42 Pain in right hand 0946297473886 09 Active 2024 Elida Messina NP [facility] [employer] [address], [place], [address], [place] - [facility] - [facility] & [place] 5 11:20:47 Benign hypertensio n 14160539 Active 2021 Elida Messina NP [facility] [employer] [facility],[address], [place], [address], [place] - [place] & [place] 2 10:24:59 Gastroesoph ageal reflux disease without esophagitis 679657955 Active 2021 Elida Messina NP [facility] [address], [place], [address], [place] - [place] & [place] 2 10:25:09 Migraine 33513638 Active 2021 Elida Messina NP [facility] [employer] [facility],[address], [place], [address], [place] - [place] & [place] 2 10:25:18 History of malignant neoplasm of breast 458103721 Active 2021 Elida Messina NP [facility] [employer] [facility],[address], [place], [address], [place] - [place] & [place] 2 10:25:38 Mixed hyperlipide vidal 818453423 Active 2021 Elida Messina NP [facility],[address], [place], [address], [place] - [place] & [place] 2 10:25:54 Allergic rhinitis 89010696 Active 2021 Elida Messina NP [facility] [employer] [facility],[address], [place], [address], [place] - [place] & [place] 2 10:26:07 Cirrhosis of liver 45566880 Active 2021 Elida Messina NP [facility] [employer] [facility],[address], [place], [address], [place] & [place] 2 10:26:18 Generalized anxiety disorder 03003854 Active 2021 Elida Messina NP [facility],[address], [place], [address], [place] [facility] - [facility] & [place] 2 10:26:55 Osteoarthri tis 357817859 Active 2021 Elida Messina NP [facility],[address], [place], [address], [place] [facility] - [facility] & [place] 2 10:27:06 Skin lesion 21715239 Active 2021 Elida Messina NP [facility] [employer] [facility],[address], [place], [address], [place] & [place] 2 10:40:43 Fatigue 33557552 Active 2021 Elida Messina NP [facility],[address], [place], [address], [place] - [place] & [place] 2 10:41:27 Blood glucose outside reference range 927218229 Active 2021 Elida Messina NP [facility],[address], [place], [address], [place] - [place] & [place] 2 10:42:01 Muscle pain 57256131 Active 2021 Dank marr, [place] - [place] - [place] & [place] 2 11:47:23 Essential hypertensio n 68280260 Active 2021 Dank null, [place] - [place] - [place] & [place] 2 11:49:18 Squamous cell carcinoma of skin 994822665 Active 2021 Elida Messina, COLE [facility],[address], [address], [place] [facility] - [place] & [place] 2 14:12:38 Congestion of nasal sinus 83175720 Active 2021 Dank null, [place] - [facility] - [place] & [place] 2 16:34:41 SARS-CoV-2 antibody detected 672104908 Active 2021 Elida Messina, COLE [facility],[address], [address], [place] [facility] - [place] & [place] 2 10:56:19 Vitamin D deficiency 67776126 Active 2021 Elida Messina, COLE [facility],[address] [place] [address], [address], [place] - [place] & [place] 4 10:28:03 Spasm 30323058 Active 2022 Nina Rolon PA-C [facility] te [address] [place] [address], [address], [place] - [place] & [place] 3 10:53:10 Sj??gren's syndrome 40203035 Active 2022 Nina Rolon PA-C [facility],[address] [place] [address], [address], [place] - [place] & [place] 3 10:54:15 Hypomagnese vidal 292790653 Active 2022 Nina Rolon PA-C [facility],[address] [place] [address], [address], [place] - [facility] - [facility] & [place] 3 08:00:02 Dental abscess 439552232 Active 2022 Elida Messina NP [facility],[address], [place], [address], [place] - [facility] - [facility] & [place] 3 10:53:45 Candidiasis of vagina 35177059 Active 2022 Elida Messina NP [facility],[address], [place], [address], [place] [facility] - [facility] & [place] 3 14:21:45 Acute pharyngitis 715335284 Active 2022 Nina Rolon PA-C [facility] [employer] [facility],[address], [place], [address], [place] [facility] - [place] & [place] 3 13:37:35 Acute otitis media 6896998 Active 2022 Nina Rolon PA-C [facility] [employer] [facility],[address], [place], [address], [place] [facility] - [facility] & [place] 3 13:54:26 Cough 91758988 Active 2022 Elida Messina NP [facility] [employer] [facility],[address], [place], [address], [place] - [place] & [place] 3 11:17:20 Acute exacerbatio n of chronic obstructive pulmonary disease 905043379 Active 2022 Elida Messina NP [facility] [employer] [facility],[address], [place], [address], [place] & [place] 3 11:44:39 Iron deficiency anemia 85552841 Active 2022 Elida Messina NP [facility] [employer] [facility],[address], [place], [address], [place] [facility] - [facility] & [place] 3 10:06:07 Pain of right shoulder joint 2839315233835 9100 Active 2022 Elida Messina NP [address] [place] [address],[address] [facility], [place], [address], [place] - [facility] - [place] & [place] 3 09:38:50 Acute upper respiratory infection 23386201 Active 2022 RM CROSS [address] [place] [address],[address] [facility], [place], [address], [place] & [place] 3 16:28:50 Middle ear effusion 1359337876 Active 2023 Elida Messina NP [address] [place] [address],[address], [place], [address], [place] - [facility] - [place] & [place] 4 09:13:11 Abrasion of skin of left ear 1398888197232 9107 Active 2023 Elida Messina NP [address] [place] [address],[address], [place], [address], [place] - [facility] - [place] & [place] 4 09:42:28 Lesion of liver 536140076 Active 2023 Stephanie Felix null, [place] - [place] - [place] & [place] 4 11:40:12 Hepatic failure 99747625 Active 2023 Stephanie marr, [place] - [place] - [place] & [place] 4 11:40:54 Pain of left hand 2181492574490 03 Active 2023 Zoe Rizzo null, [place] - [place] - [place] & [place] 5 13:17:32 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 Procedures Surgical History Date Name Laterality Status Provider Name and Address Organization Details Recorded Time 11/03/20 23 completed February [place] - [place] - [place] & [place] 02/02/2024 13:47:17 10/12/20 23 Date of Last Colonoscopy completed February Dank [place] - [facility] - [place] & [place] 02/02/2024 13:47:17 09/30/20 23 Date of Last Pap Smear completed February Dank [place] - [facility] - [place] & [place] 02/02/2024 13:47:17 10/27/20 22 Excision and closure completed Elida Messina, COLE [address], [place], [address], [place] & [place] 10/27/2022 15:19:23 10/15/20 22 Punch Biopsy completed Elida Messina NP [address], [place], [address], [place] - [place] - [place] & [place] 10/15/2022 10:44:06 11/28/19 22 Other completed February Dank [place] - [facility] & [place] 12/31/2022 10:29:21 11/28/19 22 Other completed February Dank [place] - [place] - [place] & [place] 10/27/2022 14:03:34 11/28/19 19 Knee Replacement completed Zoe [place] - [facility] - [facility] & [place] 10/15/2022 10:14:27 07/26/20 17 procedure on shoulder completed Zoe [place] - [facility] - [facility] & [place] 10/15/2022 10:14:14 11/28/19 17 Cataract Surgery completed Zoe [place] - [facility] - [facility] & [place] 10/15/2022 10:13:02 11/28/19 17 Joint Replacement completed Zoe [place] - [facility] - [facility] & [place] 10/15/2022 10:20:31 11/28/19 16 Breast Biopsy completed Zoe [place]ARDEN - [facility] - [place] & [place] 10/15/2022 10:12:50 03/04/20 15 Most Recent Bone Density completed Zoe [place] - [facility] - [facility] & [place] 10/15/2022 10:20:10 11/28/19 15 Colonoscopy completed Zoe ROWELL [facility] & [place] 10/15/2022 10:20:31 11/28/19 14 Mastectomy completed Stephanie ROWELL [facility] & [place] 02/17/2024 14:18:25 11/28/19 14 Mastectomy completed Zoe ROWELL [facility] & [place] 10/15/2022 10:11:28 11/28/19 14 Cancer Surgery completed Zoe ROWELL [facility] & [place] 10/15/2022 10:20:31 11/28/18 90 Dilation and Curettage completed Zoe ROWELL [facility] & [place] 10/15/2022 10:12:12 11/28/18 83 Appendectomy completed Zoe ROWELL [facility] & [place] 10/15/2022 10:11:40 Tubal Ligation completed Zoe ROWELL [facility] & [place] 10/15/2022 10:11:50 Imaging Results None recorded. Procedure Notes None recorded. Medical Equipment None Reported. Allergies Allergen ID Allergen Name Allergen Category Reaction Reaction Severity Criticality Documentation Date Start Date Code Code System Note Provider Name and Address Organization Details Recorded Time 156294 mold extract medicatio n Not available Not available Not available 11/03/2023 92791 8 RxNorm Other react ions and sever ities : 'Resp irato ry distr ess - moder ate', and 'Resp irato ry distr ess - moder ate'. MONISHA Herrera [facility] & [place] 3 15:39:57 45120 Product containin g penicilli n (product) medicatio n Not available Not available Not available 10/15/2022 88059 8001 SNOMED MONISHA Leavitt [facility] & [place] 2 10:20:42 55813 Substance with sulfonami de structure and antibacte rial mechanism of action (substanc e) medicatio n swelling moderate Not available 10/15/2022 05034 8003 SNOMED MONISHA Leavitt [facility] & [place] 2 10:10:24 44713 penicilli n G Not available Not available Not available Not available 10/15/2022 7980 RxNorm Other react ions and sever ities : 'Rash - moder ate'. MONISHA Herrera [facility] & [place] 3 15:39:57 37372 house dust allergeni c extract environme nt,medica tion respirato ry distress moderate Not available 10/27/2022 12334 9 RxNorm MONISHA Barton [facility] & [place] 2 14:03:28 59328 grass pollen environme nt,medica tion respirato ry distress moderate Not available 10/27/2022 58836 UNK MONISHA Barton [facility] & [place] 2 14:03:28 09423 mold extract environme nt respirato ry distress moderate Not available 10/27/2022 25754 8 RxNorm MONISHA Herrera [facility] & [place] 3 15:39:57 Medications Name Sig Start Date [...] Available Not Available No t Available Vitals Date Recorded Body height Body mass index (BMI) Body weight Body temperature Oxygen saturation Oxygen saturation in Arterial blood by Pulse oximetry Respiratory rate Heart rate Systolic blood pressure Diastolic blood pressure Provider Name and Address Organization Details Last Updated DateTime 5 172.72 cm 25.1 kg/m2 68245.7 4 g 97.7 [degF] 97 % 97 % 16 /min 80 /min 140 mm[Hg] 78 mm[Hg] February [facility] & [place] 5 11:23:23 Social History Question Answer Notes LastModified by [employer] Details LastModified Time Tobacco Smoking Status Current Every Day Smoker Zoe Salcido [facility], [facility] & [place] 10/15/2022 10:11:07 Do You Have An Advance Directive? No Information not available 10/15/2022 What Is Your Level Of Alcohol Consumption? None [email or web address] Information not available 10/15/2022 Are You Blind Or Do You Have Difficulty Seeing? No [email or web address] Information not available 10/15/2022 What Is Your Level Of Caffeine Consumption? Occasional Information not available 11/30/2023 What Was The Date Of Your Most Recent Tobacco Screening? 10/15/2022 [email or web address] Information not available 10/15/2022 Are You Passively Exposed To Smoke? Yes [email or web address] Information no t available 10/15/2022 How Much Tobacco Do You Smoke? 0.5 PPD Information not available 10/15/2022 Do You Feel Stressed (tense, Restless, Nervous, Or Anxious, Or Unable To Sleep At Night)? [id number] [email or web address] Information not available 10/15/2022 Do You Use Any Illicit Or Recreational Drugs? Yes [email or web address] Information not available 10/15/2022 Has Tobacco Cessation Counseling Been Provided? No Information not available 11/30/2023 How Many Years Have You Smoked Tobacco? 36 [email or web address] Information not available 10/15/2022 Sex: Female Functional Status Question Answer Note LastModified by [email or web address] Details LastModified Time What is your [...] available 10/15/2022 09:31:51 Medical History Condition Response Allergies/Hayfever Y Anxiety Disorder Y Autoimmune disease Y Other Y Vision or Eye Problems Y Arthritis Y Cancer Y Back Problems Y GI Problems Y COPD Y Reflux/GERD Y High Cholesterol Y Liver Disease Y Heart Attack (MD) Y Headaches Y Hypertension Y Chicken Pox Y Gynecological [...] split virus, quadrivalent, PF 2 completed Zoe [place] - [facility] - [place] & [place] 02/03/2024 13:11:40 Influenza, MDCK, quadrivalent, PF 7 completed February null, [place] - [facility] & [place] 10/27/2022 13:49:58 Tdap 2 completed Zoerex Rodast null, [place] - [facility] & [place] 02/03/2024 13:11:40 Influenza, split virus, trivalent, PF 4 completed February null, [place] - [facility] & [place] 10/27/2022 13:49:58 COVID-19, mRNA, LNP-S, PF, 100 mcg/0.5mL dose or 50 mcg/0.25mL dose 2 completed Zoe Rodast null, [place] - [facility] & [place] 02/03/2024 13:11:40 Influenza, split virus, quadrivalent, preservative 5 completed February, [facility] & [place] 10/27/2022 13:49:58 COVID-19 vaccine, vector-nr, rS-Ad26, PF, 0.5 mL 1 completed Zoe Leet null, [place] - [facility] & [place] 02/03/2024 13:11:40 Influenza, split virus, quadrivalent, PF 0 completed Zoe Rodast null, [place] - [place] [facility] & [place] 02/03/2024 13:11:40 zoster recombinant 1 completed Zoe Leet null, [place] - [facility] [facility] & [place] 02/03/2024 13:11:40 COVID-19, mRNA, LNP-S, bivalent, PF, 50 mcg/0.5 mL or 25mcg/0.25 mL dose 2 completed Zoe Leet null, [place] - [facility] [facility] & [place] 02/03/2024 13:11:40 zoster, unspecified formulation 0 completed Not Available [employer] 11/03/2023 15:33:59 Influenza, split virus, quadrivalent, PF 3 completed Zoe Leet null[place] - [facility] - [place] & [place] 02/03/2024 13:11:40 COVID-19, mRNA, LNP-S, PF, 50 mcg/0.5 mL 4 completed Zoe Rizzo tejinder[place] - [facility] & [place] 02/03/2024 13:11:40 Influenza, MDCK, trivalent, PF 4 completed Elida Messina NP [address] [facility],[address], [place], [address], [facility] & [place] 08/31/2024 09:52:33 Past Encounters Encounter ID Performer Location Encounter Start Date Encounter Closed Date Diagnosis/Indication Diagnosis SNOMED-CT Code Diagnosis ICD10 Code Diagnosis Note [id number] Elida Messina NP [address] [address] 01/21/2025 13:49:00 01/21/2025 15:27:23 Vitamin D deficiency 65842223 E55.9 Allergic rhinitis 710496 04 J30.9 Cough 66934966 R05.9 Viral syndrome 179677199 B34.9 Benign hypertension 1072 5009 I10 Cirrhosis of liver 50695 007 K74.60 [id number] Elida Messina NP [address] [address] 02/04/2025 11:14:17 02/04/2025 11:25:04 Pain of left hand 2984408407 39008 M79.642 Osteoarthritis 056912035 M19.90 Health Concerns Section Related Observation LastModified by Organization Detai ls LastModified Time None Recorded Concern Status LastModified by Organization Details LastModified Time None Recorded Payers Encounter Date Sequence Insurance Name Policy Number Policy Nelson Covered Member ID Nelson Member ID Guarantor Name 02/04/2025 1 [facility] (MEDICAID HMO) [id number] Mary Aldana [id number] Mary Aldana Notes Date Note Type Note Provider Name and Address Organization Details Recorded Time 02/04/2025 text/html 59-year-old patient presents today for reevaluation of left hand pain. [place] it was arthritis so started her on diclofenac gel, she is unable to take anti-inflammatorie s due to chronic kidney disease and cirrhosis of the liver. Patient states the gel has helped slightly but she still has discomfort through her thumb down into her hand. She had an xray of her hand a few months ago when she first offered the complaint and no acute findings were noted, only arthritic changes and bony demineralization. She has requesting an orthopedic consult today. She is starting having trouble to hold onto things and dental aide. Elida Messina, COLE [address] [facility],[address], [place], [address], [facility] - [facility] & [place] 02/04/2025 14:54:23 OBGyn Episode No OBEpisode recorded.
--- OUTSIDE RECORDS SUMMARY | 2025-03-18 10:56 | XMS_ITS | Continuity of Care Document ---
Author Organization [place] - NT [facility] Address [address] [place] [address] Care Team Providers Care Tissue Inserter Name Role Phone NINA MCCRACKEN Primary Care Provider Assessment No assessment recorded. Plan of Treatment Reminders Order Date Submit Date Provider Last Modified By Organization Details Last Modified Time Details Appointments None recorded. Lab influenza virus A + B + SARS-CoV-2 (COVID19) Ag panel, rapid IA, upper respiratory specimen 2024 025 [email or web address] [facility], [address] [place] [address], [id number], 5 15:30:55 Referral None recorded. Procedures None recorded. Surgeries None recorded. Imaging None recorded. Medication Orders levocetiriz ine 5 mg tablet 2024 025 RIO MEDINA [facility], [address] [place], [address], 5 12:54:11 montelukast 10 mg tablet 2024 025 [facility], [address] [place], [address], 5 12:54:06 cholecalcif warner (vitamin D3) 50 mcg (2,000 unit) capsule 2024 025 [facility], [address] [place], [address], 12:54:05 Patient TargetsNo targets recorded. Patient Instructions Encounter Date Encounter Id Patient Instructions Last Modified By Organization Details Last Modified Time 01/21/2025 [id number] plan 1. Patient tested for COVID and flu in both negative. Patient's symptoms seem to be resolving on their own. Assured her this seems viral in nature and no antibiotics needed at this time. 2. Refilled medications. 3. Recommended lab work on return visit. I will see her if symptoms persist or worsen. [email or web address] Not available 01/21/2025 15:31:38 Reason for Referral None Reported. Results Created Date Observation Date Name Description Value Unit Range Abnormal Flag Note LastModifiedBy Organization Detail LastModifiedTime 01/21/2001/21/2025 influ sly virus A + B + SARS- CoV-2 (COVI D19) Ag panel , rapid IA, upper respi rator y speci men FLU A negati ve Not Available [address], [address], 01/21/2025 15:03:51 01/21/20 25 01/21/2025 influ sly virus A + B + SARS- CoV-2 (COVI D19) Ag panel , rapid IA, upper respi rator y speci men FLU B negati ve Not Available [address], [address], 01/21/2025 15:03:51 01/21/20 25 01/21/2025 influ sly virus A + B + SARS- CoV-2 (COVI D19) Ag panel , rapid IA, upper respi rator y speci men SARS COV + SARS OV 2 negati ve Not Available [address], [address], 01/21/2025 15:03:51 01/31/20 25 01/29/2025 rell scree n unila t lt 2D [facility] [address] [place] [address] Phone: Fax: Name: MARY WOFLE Exam Date: 01/30/20 : [birth year] Age 60 years Gender : F Access ion: [id number] Physic macho: ELIDA MESSINA Facilhernandez ty: [facility] HSV: Outpat ient Exam: RELL SCREEN [...] 02:47 PM EST RP Workst ation: SEALWR [id number] [facility] BREAST DENSIT Y [facility] FOLLOW -UP CODE Dictat ed By: ABDON POSADAS Transc ribed By: Transc ribed On: 01/31/20 2:44 PM Electr onical ly signed by: ABDON POSADAS 01/31/20 Thank you for referr MARY Reynoso to [facility] al. Legall y authen ticate d by GERALD KAY 01-30 14:44: 52 CC'ed Logic: Orderi ng Provid er: LISA MARRERO CC Provid er: LISA MARRERO [facility] [address] [facility], [place], [address], 01/30/2025 15:32:35 02/05/20 25 XR, hand No observ ation record ed. DOMINIC [facility] [address], [address], 02/06/2025 14:06:55 02/07/20 25 XR, hand No observ ation record ed. [email or web address] [address], [address], 02/06/2025 13:16:42 Result Notes None recorded. Problems Name Problem SNOMED Code Status Onset Date Resolution Date Notes Provider Name and Address Organization Details Recorded Time Fever 836026685 Active [address] [facility], [place] - [place] - [place] & [place] 4 08:46:43 Acute bacterial pharyngitis 909714168 Active 2023 Nina Rolon PA-C [address], [place], [address], [place] - [facility] [place] 4 09:15:13 Dyspnea on exertion 30082954 Active 2024 Nina Rolon PA-C [address], [place], [address], [place] [facility] & [place] 5 09:44:44 Right lower zone pneumonia 224754129 Active 2024 Nina Rolon PA-C [address] [facility],[address], [place], [address], [place] 5 10:41:38 Viral syndrome 069381311 Active 2024 Elida Messina NP [facility],[address], [place], [address], [place] 5 15:30:42 Pain in right hand 5450748873534 09 Active 2024 Elida Messina NP [address] [facility],[address], [place], [address], [place] 5 11:20:47 Benign hypertensio n 37970871 Active 2021 Elida Messina NP [facility],[address], [place], [address], [place] 2 10:24:59 Gastroesoph ageal reflux disease without esophagitis 685023246 Active 2021 Elida Messina NP [address] [place] [address],[address], [place], [address], [place] 2 10:25:09 Migraine 30349666 Active 2021 Elida Messina NP [address] [facility],[address], [place], [address], [place] 2 10:25:18 History of malignant neoplasm of breast 430017493 Active 2021 Elida Messina NP [address] [place] [address],[address], [place], [address], [place] 2 10:25:38 Mixed hyperlipide vidal 709880462 Active 2021 Elida Messina NP [facility] [address], [place], [address], [place] 2 10:25:54 Allergic rhinitis 84134747 Active 2021 Elida Messina, COLE [address], [place], [address], [place] 2 10:26:07 Cirrhosis of liver 42072816 Active 2021 Elida Messina, PHOTO OPTICS TECHNICIAN [facility] [address], [place], [address], [place] 2 10:26:18 Generalized anxiety disorder 90227482 Active 2021 Elida Messina, COLE [facility] [address] [facility],[address], [place], [address], [place] 2 10:26:55 Osteoarthri tis 355797814 Active 2021 Elida Messina, COLE [facility] [employer],[address], [place], [address], [place] 2 10:27:06 Skin lesion 99783120 Active 2021 Elida Messina NP [facility] [address] [facility],[address], [place], [address], [place] 2 10:40:43 Fatigue 27448978 Active 2021 Elida Messina, COLE [facility] [address], [place], [address], [place] 2 10:41:27 Blood glucose outside reference range 023287535 Active 2021 Elida Messina NP [facility] [employer],[address], [place], [address], [place] [facility] & [place] 2 10:42:01 Muscle pain 34035948 Active 2021 Dank null, [place] - [facility] & [place] 2 11:47:23 Essential hypertensio n 57206107 Active 2021 Dank null, [place] - [facility] [facility] & [place] 2 11:49:18 Squamous cell carcinoma of skin 910973509 Active 2021 Elida Messina, COLE [facility] [address] [facility],[address] [place] [address], [address], [place] [facility] & [place] 2 14:12:38 Congestion of nasal sinus 23061240 Active 2021 Dank null, [place] - [facility] [place] [facility] & [place] 2 16:34:41 SARS-CoV-2 antibody detected 120202619 Active 2021 Elida Messina NP [facility] [address] [facility],[address] [facility], [place], [address], [place] 2 10:56:19 Vitamin D deficiency 83074974 Active 2021 Elida Messina, COLE [facility] [address] [facility],[address] [facility], [place], [address], [place] [facility] [facility] & [place] 4 10:28:03 Spasm 44716936 Active 2022 Nina Rolon PA-C [facility] [address] [facility],[address], [place], [address], [place] 3 10:53:10 Sj??gren's syndrome 36627737 Active 2022 Nina Rolon PA-C [facility] [address] [facility],[address] [facility], [place], [address], [place] [facility] [facility] & [place] 3 10:54:15 Hypomagnese vidal 993147248 Active 2022 Nina Rolon PA-C [facility] [employer],[address], [place], [address], [place] 3 08:00:02 Dental abscess 095901185 Active 2022 Elida Messina NP [facility] [address] [facility],[address], [place], [address], [place] 3 10:53:45 Candidiasis of vagina 39308716 Active 2022 Elida Messina NP [facility] [address] [facility],[address], [place], [address], [place] 3 14:21:45 Acute pharyngitis 591695588 Active 2022 Nina Rolon PA-C [facility] [address] [facility],[address], [place], [address], [place] 3 13:37:35 Acute otitis media 2096928 Active 2022 Nina Rolon PA-C [facility] [address] [facility],[address], [place], [address], [place] 3 13:54:26 Cough 44311694 Active 2022 Elida Messina NP [facility] [address] [facility],[address], [place], [address], [place] 3 11:17:20 Acute exacerbatio n of chronic obstructive pulmonary disease 033709143 Active 2022 Elida Messina NP [facility] [address] [facility],[address], [place], [address], [place] 3 11:44:39 Iron deficiency anemia 65135507 Active 2022 Elida Messina NP [facility] [employer],[address], [place], [address], [place] [facility] [facility] & [place] 3 10:06:07 Pain of right shoulder joint 9683164918842 9100 Active 2022 Elida Messina NP [address] [place] [address],[address], [place], [address], [place] [facility] [facility] & [place] 3 09:38:50 Acute upper respiratory infection 72213684 Active 2022 RM CROSS [address] [place] [address],[address], [place], [address], [place] [facility] [facility] & [place] 3 16:28:50 Middle ear effusion 6300173886 Active 2023 Elida Messina NP [address] [place] [address],[address] [place] [address], [address], [place] [facility] [facility] & [place] 4 09:13:11 Abrasion of skin of left ear 1993279625001 9107 Active 2023 Elida Messina NP [address] [place] [address],[address] [facility], [place], [address], [place] [facility] & [place] 4 09:42:28 Lesion of liver 072129432 Active 2023 Stephanie Felix null, [place] [facility] [place] [facility] & [place] 4 11:40:12 Hepatic failure 00840674 Active 2023 Stephanie Felix null, [place] [facility] [facility] & [place] 4 11:40:54 Pain of left hand 0134025499512 03 Active 2023 Zoe Rizzo null, [place] [facility] & [place] 5 13:17:32 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 Procedures Surgical History Date Name Laterality Status Provider Name and Address Organization Details Recorded Time 11/03/20 23 completed Na Dank [place] - [facility] - [place] & [place] 02/02/2024 13:47:17 10/12/20 23 Date of Last Colonoscopy completed February Dank [place] - [place] - [place] & [place] 02/02/2024 13:47:17 09/30/20 23 Date of Last Pap Smear completed February Dank [place] - [place] - [place] & [place] 02/02/2024 13:47:17 10/27/20 22 Excision and closure completed Elida Messina NP [address] [place] [address] Drive,[address], [place], [address], MONISHA - [place] - [place] & [place] 10/27/2022 15:19:23 10/15/20 22 Punch Biopsy completed Elida Messina NP [address] [facility],[address], [place], [address], [place] - [place] & [place] 10/15/2022 10:44:06 11/28/19 22 Other completed Na Dank [place] - [place] - [place] & [place] 12/31/2022 10:29:21 11/28/19 22 Other completed Na Dank [place] - [place] - [place] & [place] 10/27/2022 14:03:34 11/28/19 19 Knee Replacement completed Zoe [place] - [place] & [place] 10/15/2022 10:14:27 07/26/20 17 procedure on shoulder completed Zoe [place]ARD[place] - [place] - [place] & [place] 10/15/2022 10:14:14 11/28/19 17 Cataract Surgery completed Zoe [place]ARD[place] - [place] - [place] & [place] 10/15/2022 10:13:02 11/28/19 17 Joint Replacement completed Zoe [place] - [place] & [place] 10/15/2022 10:20:31 11/28/19 16 Breast Biopsy completed Zoe Salcido [place] - [place] & [place] 10/15/2022 10:12:50 03/04/20 15 Most Recent Bone Density completed Zoe ROWELL [facility] & [place] 10/15/2022 10:20:10 11/28/19 15 Colonoscopy completed Zoe ROWELL [facility] & [place] 10/15/2022 10:20:31 11/28/19 14 Mastectomy completed Stephanie BEARDEN SORIN [facility] & [place] 02/17/2024 14:18:25 11/28/19 14 Mastectomy completed Zoe ROWELL [facility] & [place] 10/15/2022 10:11:28 11/28/19 14 Cancer Surgery completed Zoe ROWELL [facility] & [place] 10/15/2022 10:20:31 11/28/18 90 Dilation and Curettage completed Zoe ROWELL [facility] & [place] 10/15/2022 10:12:12 11/28/18 83 Appendectomy completed Zoe ROWELL [facility] & [place] 10/15/2022 10:11:40 Tubal Ligation completed Zoe ROWELL [facility] & [place] 10/15/2022 10:11:50 Imaging Results None recorded. Procedure Notes None recorded. Medical Equipment None Reported. Allergies Allergen ID Allergen Name Allergen Category Reaction Reaction Severity Criticality Documentation Date Start Date Code Code System Note Provider Name and Address Organization Details Recorded Time 483790 mold extract medicatio n Not available Not available Not available 11/03/2023 37769 8 RxNorm Other react ions and sever ities : 'Resp irato ry distr ess - moder ate', and 'Resp irato ry distr ess - moder ate'. MONISHA Herrera [facility] & [place] 3 15:39:57 40478 Product containin g penicilli n (product) medicatio n Not available Not available Not available 10/15/2022 81259 8001 SNOMED MONISHA Leavitt [facility] & [place] 2 10:20:42 42392 Substance with sulfonami de structure and antibacte rial mechanism of action (substanc e) medicatio n swelling moderate Not available 10/15/2022 04528 8003 SNOMED [facility] [place] 2 10:10:24 09781 penicilli n G Not available Not available Not available Not available 10/15/2022 7980 RxNorm Other react ions and sever ities : 'Rash - moder ate'. MONISHA eHrrera [facility] & [place] 3 15:39:57 85553 house dust allergeni c extract environme nt,medica tion respirato ry distress moderate Not available 10/27/2022 80302 9 RxNorm MONISHA Barton [facility] & [place] 2 14:03:28 97051 grass pollen environme nt,medica tion respirato ry distress moderate Not available 10/27/2022 20374 UNK MONISHA Barton [facility] & [place] 2 14:03:28 05208 mold extract environme nt respirato ry distress moderate Not available 10/27/2022 31289 8 RxNorm MONISHA Herrera [facility] & [place] 3 15:39:57 Medications Name Sig Start Date [...] completed Not Available Not Available Not Available Jacqueline Velazquez 200 mcg-62.5 mcg-25 mcg powder for inhalation INHALE 1 PUFF ONCE DAILY DIRECTED .WASH OUT MOUTH AFTER USE active Not Available Not Available No t Available Vitals Date Recorded Body height Body mass index (BMI) Body weight Body temperature Oxygen saturation Oxygen saturation in Arterial blood by Pulse oximetry Heart rate Systolic blood pressure Diastolic blood pressure Provider Name and Address Organization Details Last Updated DateTime 5 172.72 cm 25.1 kg/m2 15218.7 4 g 97.7 [degF] 97 % 97 % 80 /min 140 mm[Hg] 78 mm[Hg] Zoe Rizzo [facility] & [place] 5 14:07:08 Social History Question Answer Notes LastModified by Organizat ion Details LastModified Time Tobacco Smoking Status Current Every Day Smoker Zoe Salcido [facility], [facility] & [place] 10/15/2022 10:11:07 Do You Have An Advance Directive? No [email or web address] Information not available 10/15/2022 What Is Your Level Of Alcohol Consumption? None [email or web address] Information not available 10/15/2022 Are You Blind Or Do You Have Difficulty Seeing? No [email or web address] Information not available 10/15/2022 What Is Your Level Of Caffeine Consumption? Occasional Information not available 11/30/2023 What Was The Date Of Your Most Recent Tobacco Screening? 10/15/2022 [email or web address] Information not available 10/15/2022 Are You Passively Exposed To Smoke? Yes Information no t available 10/15/2022 How Much Tobacco Do You Smoke? 0.5 PPD [email or web address] Information not available 10/15/2022 Do You Feel Stressed (tense, Restless, Nervous, Or Anxious, Or Unable To Sleep At Night)? [id number] [email or web address] Information not available 10/15/2022 Do You Use Any Illicit Or Recreational Drugs? Yes [email or web address] Information not available 10/15/2022 Has Tobacco Cessation Counseling Been Provided? No Information not available 11/30/2023 How Many Years Have You Smoked Tobacco? 36 Information not available 10/15/2022 Sex: Female Functional [...] available 10/15/2022 09:31:51 Medical History Condition Response Anxiety Disorder Y Allergies/Hayfever Y Autoimmune disease Y Other Y Vision or Eye Problems Y Arthritis Y Cancer Y Back Problems Y COPD Y GI Problems Y Reflux/GERD Y High Cholesterol Y Liver Disease Y Heart Attack (AR) Y Headaches Y Hypertension Y Chicken Pox [...] Influenza, split virus, quadrivalent, PF 2 completed Zoerex Rodast null, [place] - [place] [facility] & [place] 02/03/2024 13:11:40 Influenza, MDCK, quadrivalent, PF 7 completed February null, [facility] [place] 10/27/2022 13:49:58 [facility] 2 [facility] & [place] 02/03/2024 13:11:40 Influenza, split virus, trivalent, PF 4 completed February null, [facility] & [place] 10/27/2022 13:49:58 COVID-19, mRNA, LNP-S, PF, 100 mcg/0.5mL dose or 50 mcg/0.25mL dose 2 completed Zoe Leet null, [facility] & [place] 02/03/2024 13:11:40 Influenza, split virus, quadrivalent, preservative 5 completed February null, [facility] & [place] 10/27/2022 13:49:58 COVID-19 vaccine, vector-nr, rS-Ad26, PF, 0.5 mL 1 completed Zoe Leet null, [place] - [place] [facility] & [place] 02/03/2024 13:11:40 Influenza, split virus, quadrivalent, PF 0 completed [facility]oe Leet null, [facility] & [place] 02/03/2024 13:11:40 zoster recombinant 1 completed Zoe Leet null, [place] [facility] & [place] 02/03/2024 13:11:40 COVID-19, mRNA, LNP-S, bivalent, PF, 50 mcg/0.5 mL or 25mcg/0.25 mL dose 2 completed Zoe Leet null, [place] [facility] & [place] 02/03/2024 13:11:40 zoster, unspecified formulation 0 completed Not Available [facility] 11/03/2023 15:33:59 Influenza, split virus, quadrivalent, PF 3 completed Zoe Rizzo null, [place] [facility] & [place] 02/03/2024 13:11:40 COVID-19, mRNA, LNP-S, PF, 50 mcg/0.5 mL 4 completed Zoe Rizzo null, [place] 02/03/2024 13:11:40 Influenza, MDCK, trivalent, PF 4 completed Elida Messina NP [address] [place] [address],[address], [place], [address], [place] & [place] 08/31/2024 09:52:33 Past Encounters Encounter ID Performer Location Encounter Start Date Encounter Closed Date Diagnosis/Indication Diagnosis SNOMED-CT Code Diagnosis ICD10 Code Diagnosis Note [id number] Elida Messina NP [facility] [address] [address] 01/21/2025 13:49:00 01/21/2025 15:27:23 Vitamin D deficiency 70735100 E55.9 Allergic rhinitis 553516 04 J30.9 Cough 71399994 R05.9 Viral syndrome 639586208 B34.9 Benign hypertension 1072 5009 I10 Cirrhosis of liver 007 K74.60 Health Concerns Section Related Observation LastModified by Organization Detai ls LastModified Time None Recorded Concern Status LastModified by Organization Details LastModified Time None Recorded Payers Encounter Date Sequence Insurance Name Policy Number Policy Nelson Covered Member ID Nelson Member ID Guarantor Name 01/21/2025 1 [facility] [id number] Mary Aldana [id number] Marymendy Aldana Notes Date Note Type Note Provider Name and Address Organization Details Recorded Time 01/21/2025 text/html 60-year-old patient presents today needing refills on her medications. She is due for lab work but she is not fasting today. In addition, her and her both are in with sinus drainage, ear pressure, and dry cough in the last week. She states in the last few days she is felt better. She has had no purulent drainage, no productive cough, no fevers. She takes her regular allergy medications but nothing additionally for her symptoms. Elida Messina NP [address] [facility],[address], [place], [address], [facility] & [place] 01/22/2025 09:52:56 OBGyn Episode No OBEpisode recorded.
--- OUTSIDE RECORDS SUMMARY | 2025-03-18 10:56 | XMS_ITS | Continuity of Care Document ---
Author Organization [place] - [facility] Address [address] [place] [address] Care Team Providers Care Supervisor Cig[employer] Machine Name Role Phone NINA MCCRACKEN Primary Care Provider [phone] Assessment No assessment recorded. Plan of Treatment Reminders Order Date Submit Date Provider Last Modified By Organization Details Last Modified Time Details Appointments None record ed. Lab None record ed. Referral None record ed. Procedures None record ed. Surgeries None record ed. Imaging XR, hand 025 02/07/20 [email or web address] [facility], [address] [place] [address], [place], [address], 13:24:01 Medication Orders None record ed. Patient TargetsNo targets recorded. Patient InstructionsNo instructions recorded. Reason for Referral None Reported. Results Created Date Observation Date Name Description Value Unit Range Abnormal Flag Note LastModifiedBy Organization Detail LastModifiedTime 01/31/2001/29/2025 rell scree n unila t lt 2D [facility] [address] [place] [address] Phone: Fax: Name: MARY WOLFE Exam Date: 01/30/20 25 : [birth year] Age 60 years Gender : F Access ion: [id number] Physic macho: ELIDA MESSINA ty: [facility] HSV: Outpat ient Exam: RELL SCREEN [...] 02:47 PM EST RP Workst ation: SEALWR [id number] [facility] BIRADS FCH BREAST DENSIT Y [facility] FOLLOW -UP CODE Dictat ed By: ABDON POSADAS Transc ribed By: Transc ribed On: 01/31/20 2:44 PM Electr onical ly signed by: ABDON POSADAS 01/31/20 Thank you for referr ing MARY WOLFE to [facility]. Legall y authen ticate d by GERALD KAY 01-30 14:44: 52 CC'ed Logic: Orderi ng Provid er: LISA MARRERO CC Provid er: LISA MARRERO [email or web address] [facility] (Imaging) [address] [place], [address], 01/30/2025 15:32:35 02/05/20 25 XR, hand No observ ation record ed. DOMINIC [place] [address], [address], 02/06/2025 14:06:55 02/07/20 25 XR, hand No observ ation record ed. [email or web address] [address], [address], 02/06/2025 13:16:42 Result Notes None recorded. Problems Name Problem SNOMED Code Status Onset Date Resolution Date Notes Provider Name and Address Organization Details Recorded Time Fever 285829703 Active 2023 Neva marr, [place] - [place] & [place] 4 08:46:43 Acute bacterial pharyngitis 316364971 Active 2023 Nina Rolon PA-C [address], [place], [address], [place] & [place] 4 09:15:13 Dyspnea on exertion 36061432 Active 2024 Nina Rolon PA-C [address], [place], [address], [place] 5 09:44:44 Right lower zone pneumonia 577926952 Active 2024 Nina Rolon PA-C [address], [place], [address], [place] 5 10:41:38 Viral syndrome 067953227 Active 2024 Elida Messina NP [address], [place], [address], [place] 5 15:30:42 Pain in right hand 5969247293893 09 Active 2024 Elida Messina NP [facility] [employer] [facility],[address], [place], [address], [place] 5 11:20:47 Benign hypertensio n 18512673 Active 2021 Elida Messina NP [facility] [employer] [facility],[address], [place], [address], [place] 2 10:24:59 Gastroesoph ageal reflux disease without esophagitis 000900776 Active 2021 Elida Messina NP [facility] [employer] [facility],[address], [place], [address], [place] 2 10:25:09 Migraine 81966865 Active 2021 Elida Messina NP [facility] [employer] [facility],[address], [place], [address], [place] 2 10:25:18 History of malignant neoplasm of breast 089647995 Active 2021 Elida Messina NP [facility] [employer] [facility],[address], [place], [address], [place] 2 10:25:38 Mixed hyperlipide vidal 064452358 Active 2021 Elida Messina NP [facility] [employer] [facility],[address], [place], [address], [place] 2 10:25:54 Allergic rhinitis 17394962 Active 2021 Elida Messina NP [facility] [employer] [facility],[address], [place], [address], [place] 2 10:26:07 Cirrhosis of liver 07566373 Active 2021 Elida Messina NP [address] [place] [address], [place], [address], [place] 2 10:26:18 Generalized anxiety disorder 48453425 Active 2021 Elida Messina, COLE [address] [place] [address],[address], [place], [address], [place] [facility] [facility] & [place] 2 10:26:55 Osteoarthri tis 785983547 Active 2021 Elida Messina, COLE [facility] [employer] [address], [place], [address], [place] 2 10:27:06 Skin lesion 88919926 Active 2021 Elida Messina NP [facility] [employer] [facility],[address], [place], [address], [place] 2 10:40:43 Fatigue 37961530 Active 2021 Elida Messina, COLE [facility] [employer] [facility],[address], [place], [address], [place] 2 10:41:27 Blood glucose outside reference range 748825942 Active 2021 Elida Messina NP [facility] [employer] [facility],[address], [place], [address], [place] 2 10:42:01 Muscle pain 36942266 Active 2021 Dank marr[place] 2 11:47:23 Essential hypertensio n 40078176 Active 2021 Dank null[place] 2 11:49:18 Squamous cell carcinoma of skin 429244983 Active 2021 Elida Messina NP [facility] [employer] [facility],[address], [address], [place] 2 14:12:38 Congestion of nasal sinus 11673051 Active 2021 Na marr[place] & [place] 2 16:34:41 SARS-CoV-2 antibody detected 382495154 Active 2021 Elida Messina NP [facility] [employer] [facility],[address], [address], [place] 2 10:56:19 Vitamin D deficiency 42974099 Active 2021 Elida Messina NP [facility] [employer] [facility],[address], [address], [place] 4 10:28:03 Spasm 78335150 Active 2022 Nina Rolon PA-C [facility] [employer] [facility],[address], [address], [place] 3 10:53:10 Sj??gren's syndrome 02375361 Active 2022 Nina Rolon PA-C [facility] [employer] [facility],[address], [address], [place] 3 10:54:15 Hypomagnese vidal 834132849 Active 2022 Nina Rolon PA-C [facility] [employer] [facility],[address], [address], [place] 3 08:00:02 Dental abscess 864644957 Active 2022 Elida Messina NP [facility] [employer] [facility],[address], [address], [place] 3 10:53:45 Candidiasis of vagina 59940898 Active 2022 Elida Messian NP [facility] [employer], [place], [address], [place] 3 14:21:45 Acute pharyngitis 101037711 Active 2022 Nina Rolon PA-C [facility] [employer] [facility],[address], [place], [address], [place] 3 13:37:35 Acute otitis media 2942289 Active 2022 Nina Rolon PA-C [facility] [employer] [facility],[address], [place], [address], [place] 3 13:54:26 Cough 53231810 Active 2022 Elida Messina NP [facility] [employer] [facility],[address], [place], [address], [place] 3 11:17:20 Acute exacerbatio n of chronic obstructive pulmonary disease 180482921 Active 2022 Elida Messina NP [facility] [employer] [facility],[address], [place], [address], [place] 3 11:44:39 Iron deficiency anemia 43434375 Active 2022 Elida Messina NP [facility] [employer] [facility],[address], [place], [address], [place] 3 10:06:07 Pain of right shoulder joint 3454991442484 9100 Active 2022 Elida Messina NP [facility] [employer] [facility],[address], [place], [address], [place] 3 09:38:50 Acute upper respiratory infection 99971211 Active 2022 RM CROSS [address] [place] [address],[address], [place], [address], [place] 3 16:28:50 Middle ear effusion 7544307830 Active 2023 Elida Messina NP [address] [place] [address],[address], [place], [address], [place] [facility] & [place] 4 09:13:11 Abrasion of skin of left ear 6163723601483 9107 Active 2023 Elida Messina NP [address] [place] [address],[address], [place], [address], [place] [facility] & [place] 4 09:42:28 Lesion of liver 670527151 Active 2023 Stephanie Mack null[place] 4 11:40:12 Hepatic failure 55752502 Active 2023 Stephanie Mack null[place] 4 11:40:54 Pain of left hand 4437845383821 03 Active 2023 Zoe Rizzo null[place] 5 13:17:32 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 Procedures Surgical History Date Name Laterality Status Provider Name and Address Organization Details Recorded Time 11/03/20 completed February Dank BEARDEN - [facility] - [place] & [place] 02/02/2024 13:47:17 10/12/20 Date of Last Colonoscopy completed February Dank Villagran [facility] & [place] 02/02/2024 13:47:17 09/30/20 Date of Last Pap Smear completed February Dank Villagran [facility] - [place] & [place] 02/02/2024 13:47:17 10/27/20 22 Excision and closure completed Elida Messina, COLE [address], [place], [address], [place] 10/27/2022 15:19:23 10/15/20 22 Punch Biopsy completed Elida Messina, COLE [address], [place], [address], [place] 10/15/2022 10:44:06 11/28/19 22 Other completed February Dank [place] - [place] & [place] 12/31/2022 10:29:21 11/28/19 22 Other completed February Dank [place] - [place] & [place] 10/27/2022 14:03:34 11/28/19 19 Knee Replacement completed Zoe Salcido [place] [facility] & [place] 10/15/2022 10:14:27 07/26/20 17 procedure on shoulder completed Zoe Salcido [place] [facility] [place] [facility] & [place] 10/15/2022 10:14:14 11/28/19 17 Cataract Surgery completed Zoe Salcido [place] [facility] [place] [facility] & [place] 10/15/2022 10:13:02 11/28/19 17 Joint Replacement completed Zoe Salcido [place] [facility] [facility] & [place] 10/15/2022 10:20:31 11/28/19 16 Breast Biopsy completed Zoe [place]cido [place] [facility] [place] [facility] & [place] 10/15/2022 10:12:50 03/04/20 15 Most Recent Bone Density completed Zoe Salcido [place] 10/15/2022 10:20:10 11/28/19 15 Colonoscopy completed Zoe Salcido [place] 10/15/2022 10:20:31 11/28/19 14 Mastectomy completed Stephanie Felix [place] & [place] 02/17/2024 14:18:25 11/28/19 14 Mastectomy completed Zoe [place]cido [place] 10/15/2022 10:11:28 11/28/19 14 Cancer Surgery completed Zoe ROWELL [facility] & [place] 10/15/2022 10:20:31 11/28/18 90 Dilation and Curettage completed Zoe ROWELL [facility] & [place] 10/15/2022 10:12:12 11/28/18 83 [facility] [place] 10/15/2022 10:11:40 Tubal Ligation [facility] & [place] 10/15/2022 10:11:50 Imaging Results Imaging Date Name Status LastModified by Organiz ation Details LastModified Time 02/06/2025 XR, hand completed [email or web address] [address], [address], 02/06/2025 13:16:42 Procedure Notes None recorded. Medical Equipment None Reported. Allergies Allergen ID Allergen Name Allergen Category Reaction Reaction Severity Criticality Documentation Date Start Date Code Code System Note Provider Name and Address Organization Details Recorded Time 882389 mold extract medicatio n Not available Not available Not available 11/03/2023 42405 8 RxNorm Other react ions and sever ities : 'Resp irato ry distr ess - moder ate', and 'Resp irato ry distr ess - moder ate'. MONISHA Herrera [facility] & [place] 3 15:39:57 11440 Product containin g penicilli n (product) medicatio n Not available Not available Not available 10/15/2022 57276 8001 SNOMED MONISHA Leavitt [facility] & [place] 2 10:20:42 28638 Substance with sulfonami de structure and antibacte rial mechanism of action (substanc e) medicatio n swelling moderate Not available 10/15/2022 23865 8003 SNOMED MONISHA Leavitt [facility] & [place] 2 10:10:24 65822 penicilli n G Not available Not available Not available Not available 10/15/2022 7980 RxNorm Other react ions and sever ities : 'Rash - moder ate'. MONISHA Herrera [facility] & [place] 3 15:39:57 32206 house dust allergeni c extract environme nt,medica tion respirato ry distress moderate Not available 10/27/2022 55774 9 RxNorm MONISHA aBrton [facility] & [place] 2 14:03:28 46261 grass pollen environme nt,medica tion respirato ry distress moderate Not available 10/27/2022 32239 UNK MONISHA Barton [facility] & [place] 2 14:03:28 75936 mold extract environme nt respirato ry distress moderate Not available 10/27/2022 35377 8 RxNorm [facility] & [place] 3 15:39:57 Medications Name Sig Start Date [...] Status Current Every Day Smoker Zoe Salcido [facility] & [place] 10/15/2022 10:11:07 Do You Have An Advance Directive? No [email or web address] Information not available 10/15/2022 What Is Your Level Of Alcohol Consumption? None [email or web address] Information not available 10/15/2022 Are You Blind Or Do You Have Difficulty Seeing? No [email or web address] Information not available 10/15/2022 What Is Your Level Of Caffeine Consumption? Occasional Information not available 11/30/2023 What Was The Date Of Your Most Recent Tobacco Screening? 10/15/2022 [email or web address] Information not available 10/15/2022 Are You Passively Exposed To Smoke? Yes [email or web address] Information no t available 10/15/2022 How Much Tobacco Do You Smoke? 0.5 PPD [email or web address] Information not available 10/15/2022 Do You Feel Stressed (tense, Restless, Nervous, Or Anxious, Or Unable To Sleep At Night)? [id number] [email or web address] Information not available 10/15/2022 Do You Use Any Illicit Or Recreational Drugs? Yes Information not available 10/15/2022 Has Tobacco Cessation Counseling Been Provided? No Information not available 11/30/2023 How Many Years Have You Smoked Tobacco? 36 [email or web address] Information not available 10/15/2022 Sex: Female Functional Status Question Answer Note LastModified by Organizat ion Details LastModified Time What is your exercise level? Occasional [email or web address] Information not available 10/15/2022 Mental Status None [...] 09:31:51 Medical History Condition Response Allergies/Hayfever Y Other Y GI Problems Y COPD Y Heart Attack (ME) Y Anxiety Disorder Y Autoimmune disease Y Vision or Eye Problems Y Arthritis Y Cancer Y Back Problems Y Reflux/GERD Y High Cholesterol Y Liver Disease Y Headaches Y Hypertension Y Chicken Pox [...] Zoe Rizzo [place] 02/03/2024 13:11:40 Influenza, MDCK, quadrivalent, PF 7 completed February Dank [place] 10/27/2022 13:49:58 Tdap 2 completed Zoe Rizzo [place] 02/03/2024 13:11:40 Influenza, split virus, trivalent, PF 4 completed February Dank null[place] 10/27/2022 13:49:58 COVID-19, mRNA, LNP-S, PF, 100 mcg/0.5mL dose or 50 mcg/0.25mL dose 2 completed Zoe Leet null[place] [facility] & [place] 02/03/2024 13:11:40 Influenza, split virus, quadrivalent, preservative 5 completed Na Weems null, [place] [facility] & [place] 10/27/2022 13:49:58 COVID-19 vaccine, vector-nr, rS-Ad26, PF, 0.5 mL 1 completed Zoe Leet [place] 02/03/2024 13:11:40 Influenza, split virus, quadrivalent, PF 0 completed Zoe Leet [place] 02/03/2024 13:11:40 zoster recombinant 1 completed Zoe Leet [place] 02/03/2024 13:11:40 COVID-19, mRNA, LNP-S, bivalent, PF, 50 mcg/0.5 mL or 25mcg/0.25 mL dose 2 completed Zoe Leet [place] 02/03/2024 13:11:40 zoster, unspecified formulation 0 completed Not Available [facility] 11/03/2023 15:33:59 Influenza, split virus, quadrivalent, PF 3 completed Zoe Leet [place] 02/03/2024 13:11:40 COVID-19, mRNA, LNP-S, PF, 50 mcg/0.5 mL 4 completed Zoe Leet [place] [facility] & [place] 02/03/2024 13:11:40 Influenza, MDCK, trivalent, PF 4 completed Elida Messina NP [address] [place] [address],[address], [place], [address], [place] & [place] 08/31/2024 09:52:33 Past Encounters Encounter ID Performer Location Encounter Start Date Encounter Closed Date Diagnosis/Indication Diagnosis SNOMED-CT Code Diagnosis ICD10 Code Diagnosis Note [id number] Elida Messina NP [address] [address] [place] [address] 01/21/2025 13:49:00 01/21/2025 15:27:23 Vitamin D deficiency 33682046 E55.9 Allergic rhinitis 327048 04 J30.9 Cough 73105027 R05.9 Viral syndrome 947007902 B34.9 Benign hypertension 1072 5009 I10 Cirrhosis of liver 94104 007 K74.60 [id number] Elida Messina NP [address] [address] [place] [address] 02/04/2025 11:14:17 02/04/2025 11:25:04 Pain of left hand 0437173544 28505 M79.642 Osteoarthritis 785128153 M19.90 [id number] DO JUNE SORENSON [address] [facility] [place] [address] 02/06/2025 13:40:18 02/06/2025 14:28:46 Pain of left hand 6401523697 77383 M79.642 Arthritis of first carpometacarpal joint of left hand 5792092368 101194 M18.12 [id number] Elida Messina NP [facility] [address] [facility] [place] [address] 02/06/2025 12:57:50 02/06/2025 13:23:42 Pain of left hand 5000039377 39973 M79.642 Health Concerns Section Related Observation LastModified by Organization Detai ls LastModified Time None Recorded Concern Status LastModified by Organization Details LastModified Time None Recorded Payers Encounter Date Sequence Insurance Name Policy Number Policy Nelson Covered Member ID Nelson Member ID Guarantor Name 02/06/2025 1 [facility] [place] ([place] [id number] Mary Aldana [id number] Mary Aldana Notes Date Note Type Note Provider Name and Address Organization Details Recorded Time 02/06/2025 text/html 60 year old fema le here today for left hand pain ongoing for 4 months-- no known injury. She has pain with gripping/twisting. She denies numbness and tingling of hand. She was using arthritis cream, minimal relief. X-rays of left hand taken at [facility]. ADELAIDA BAKER, [address] [facility],[address], [place], [address], [place] 02/08/2025 08:02:55 OBGyn Episode No OBEpisode recorded.
--- NOTE | 2025-03-18 11:00 | CA_ITS ---
FINAL REPORT TECHNIQUE: Ultrasound images of the deep venous system were obtained from the left groin to the calf veins. CLINICAL HISTORY: edema bilateral lower extremities with left > right x several months. Denies trauma. Cirrhosis of the liver. Smoker. COMPARISON: None FINDINGS: The left lower extremity deep venous system is normally compressible. Normal flow is identified. IMPRESSION: No evidence of left lower extremity DVT. Reviewed, Interpreted and Dictated by Corazon Pop MD Transcribed by Mckenna Biggs Authenticated and [facility]
== END 2025-03-18 23:59 | disposition home or self-care (01) ==
LOC: RT 10:54
PROVIDERS: PCP Nurse Practitioner Family; Visit Provider Nurse Practitioner Family
DX: R60.9 Edema, unspecified (principal)
CPT/HCPCS: 93971